=== PATIENT | male | born 1950 | race Caucasian/White ===

== ENCOUNTER 2019-10-13 11:09 | Inpatient (IN) ==
[2019-10-13] MEDS ORDERED: TUSSIONEX PENNKINETIC SUSP PO PRN (11:59)
[2019-10-13 12:33] LABS: BASOPHILS % (AUTO) 0.2 % (0.2-1.0); HEMATOCRIT 38.9 % (42.0-54.0); LYMPHOCYTES # (AUTO) 1.1 X10^3/uL (1.3-2.9); LYMPHOCYTES % (AUTO) 20.5 % (21.0-51.0); MEAN CORPUSCULAR HGB CONC 33.5 g/dL (33.0-35.0); MEAN CORPUSCULAR VOLUME 89.5 fL (80.0-100.0); MONOCYTES # (AUTO) 0.3 x10^3/uL (0.3-0.8); MONOCYTES % (AUTO) 5.7 % (0.0-13.0); NEUTROPHILS # (AUTO) 3.8 x10^3/uL (2.2-4.8); NEUTROPHILS % (AUTO) 73.6 % (42.0-75.0); PLATELET COUNT 154 X10^3/uL (150.0-450.0); RED BLOOD COUNT 4.34 X10^6/uL (4.7-6.0); RED CELL DISTRIBUTION WIDTH 12.8 % (11.6-16.5); WHITE BLOOD COUNT 5.2 X10^3/uL (3.6-10.0)
--- NOTE | 2019-10-13 12:40 | RAD ---
HISTORYACUTE BRONCHITIS, SOB, FEVERSTUDYPortable AP chestCOMPARISONNoneFINDINGSThere is a vague and patchy ground-glass like opacity in the right lower lobe peripherally. The heart size is prominent status post CABG. There is no edema or effusion. There are prominent osteophytes about the AC joints. There are old left posterior rib fractures.IMPRESSIONRight lower lobe peripheral pneumonitisElectronically signed by: DILIA HILL (Oct 13, 2019 12:35:59)
[2019-10-13 12:52] LABS: ALANINE AMINOTRANSFERASE 24 Units/L (12-78); ALKALINE PHOSPHATASE 35 Units/L (46-116); ASPARTATE AMINO TRANSFERASE 31 Units/L (15-37); BLOOD UREA NITROGEN 16 mg/dL (7-18); CALCIUM 8.6 mg/dL (8.5-10.1); CARBON DIOXIDE 25.3 mmol/L (21-32); CHLORIDE 95 mmol/L (98-107); COR CA(FOR HYPOALB) 9.4 mg/dL (8.5-10.1); COR NA(FOR HYPERGLY) 133 mmol/L (136-145); CREATININE 1.13 mg/dL (0.70-1.30); SODIUM 129 mmol/L (136-145); eGFR NON BLACK RACES > 60 (>60)
[2019-10-13] MEDS ORDERED: NS 1/2 1000 ML IV 1,000 ML IV ONE (13:58)
[2019-10-13] MEDS: NS 1/2 1000 ML IV 1,000 ML IV SCH (14:49)
[2019-10-13] MEDS: ROBITUSSIN DM PO SCH ×3 (14:49→20:58)
[2019-10-13 15:56] VITALS: BMI 27.6
[2019-10-13] MEDS: XOPENEX 1.25 MG/3 ML NEBULE NEB SCH (17:15)
[2019-10-13] MEDS: LOVENOX INJ 40 MG SYR SC SCH (20:57)
[2019-10-13] MEDS: VIBRAMYCIN 100 MG in NS 100 ML IV + SPIKE MINIBAG* 100 ML IV SCH (20:59)
[2019-10-13] MEDS: RESTORIL CAP 15 MG PO PRN (21:06)
--- NOTE | 2019-10-13 21:55 | DR.H&P ---
H&P - History & Physical for Day of: H&P Date: 10/13/19 - Chief Complaint Chief Complaint: Weakness, congestion - History of Present Illness History of Present Illness: The patient is a 69yo WM who presents to [facility] with complaints of continued congestion and weakness. Has been taking a ZPak for sinus congestion. States he is now coughing. State will get mildly short of breath with ambulation. Denies known Covid exposure. Denies wearing mask. State he primary is in the [employer] working. States that he has been running low grade fevers. Denies productive cough. Denies loss of taste. Denies GI symptoms. Does have history of CABG, DM, HTN. Patiet agrees with hospital admission. - Past Medical History Past Medical History: COPD, Coronary Artery Disease, Hypertension, Dyslipidemia, Diabetes, CHF - Past Surgical History Surgical History: CABG/Valve Surgery, Ortho Surgery - Family History Family Medical History: Diabetes Mellitus, Cancer, MA, Hypertension - Social History Does patient currently use any type of tobacco product: No Have you used tobacco products in the last 12 months: No Type of Tobacco Use: None Does any household member use tobacco: No Alcohol Use: None Drug Use: None Prescription drug monitoring program results: PDMP reviewed and no concerns identified - Medications Home Medications: No Known Drug Allergies Allergy (Verified 10/13/19 18:06) CONTINUE taking the following medications albuterol sulfate [ProAir HFA] 1 puff INHALATION QID PRN 10/13/19 [History] carvedilol 6.25 mg PO BID 10/13/19 [History] clopidogrel 75 mg PO DAILY 10/13/19 [History] empagliflozin-linagliptin [Glyxambi] 1 tab PO DAILY 10/13/19 [History] lisinopril 5 mg PO DAILY 10/13/19 [History] metformin 1,000 mg PO BID 10/13/19 [History] pantoprazole 40 mg PO BID 10/13/19 [History] - Review of Systems Constitutional: Fever, Weakness, Malaise Eyes: No Symptoms Reported ENT: Nose Congestion Respiratory: Cough, SOB with Excertion Cardiovascular: No Symptoms Reported Gastrointestinal: No Symptoms Reported Genitourinary: No Symptoms Reported Musculoskeletal: No Symptoms Reported Skin: No Symptoms Reported Neurological: No Symptoms Reported - Physical Exam Vital Signs: Temperature 100.7 F Pulse Rate [Apical] 98 Pulse Rate 101 Respiratory Rate 34 Blood Pressure [Right Arm] 153/76 Blood Pressure [Left Arm] 133/64 Blood Pressure 133/64 O2 Sat by Pulse Oximetry 95 Oriented: Normal Eyes: Normal Ear: Normal Nose: Normal Throat: Normal Respiratory: RLL Rhonchi, LLL Rhonchi Cardiovascular: Normal : Normal Auscultation: Bowel Sounds: Normal Palpation: Normal Tenderness: Normal Skin: Normal Musculoskeletal: Normal Psychiatric: Normal Mood Description: Calm Affect: Normal Speech Pattern: Clear - Assessment/Plan (1) COVID-19 Status: Acute Plan: droplet precautions, Plaquenel, Zinc, Vtamin C (2) Pneumonia Status: Acute Plan: IV antibiotics, CXR, ABG (3) Hyponatremia Status: Acute Plan: IVF with NS, Labs (4) CAD (coronary artery disease) Status: Chronic (5) Diabetes mellitus Qualifiers: Diabetes mellitus type: type 2 Status: Chronic Plan: Sliding scae coverage (6) Hypertension Qualifiers: Hypertension type: essential hypertension Status: Chronic Plan: Monitor BP. Home meds. - Review H&P Reviewed: Yes Patient was examined?: Yes - Allergies Allergies/Adverse Reactions: Allergies Allergy/AdvReac Type Severity Reaction Status Date / Time No Known Drug Allergies Allergy Verified 10/13/19 18:06
[2019-10-13] MEDS ORDERED: VENTOLIN or PROAIR HFA IN PRN (22:01)
[2019-10-13] MEDS: VITAMIN C PO SCH (22:22)
[2019-10-13] MEDS: ZINC SULFATE PO SCH (22:22)
[2019-10-13] MEDS: PLAQUENIL PO SCH (22:22)
[2019-10-13 22:23] LABS: BASOPHILS % (AUTO) 0.3 % (0.2-1.0); HEMATOCRIT 37.4 % (42.0-54.0); HEMOGLOBIN 12.4 g/dL (13.5-18.0); LYMPHOCYTES # (AUTO) 1.2 X10^3/uL (1.3-2.9); LYMPHOCYTES % (AUTO) 27.1 % (21.0-51.0); MEAN CORPUSCULAR HEMOGLOBIN 29.8 pg (27.0-34.0); MEAN CORPUSCULAR HGB CONC 33.3 g/dL (33.0-35.0); MEAN CORPUSCULAR VOLUME 89.4 fL (80.0-100.0); MEAN PLATELET VOLUME 7.8 fL (7.4-11.0); MONOCYTES # (AUTO) 0.2 x10^3/uL (0.3-0.8); MONOCYTES % (AUTO) 5.3 % (0.0-13.0); NEUTROPHILS % (AUTO) 67.3 % (42.0-75.0); PLATELET COUNT 145 X10^3/uL (150.0-450.0); RED BLOOD COUNT 4.18 X10^6/uL (4.7-6.0); RED CELL DISTRIBUTION WIDTH 12.8 % (11.6-16.5); WHITE BLOOD COUNT 4.5 X10^3/uL (3.6-10.0)
[2019-10-13 22:28] LABS: ABG BASE EXCESS 3.3 mmol/L (-2.0-2.0); ABG HCO3 27.8 mmol/L (22-26)
[2019-10-13 22:31] LABS: ABG ALLEN TEST POSS
[2019-10-13 22:32] LABS: ALANINE AMINOTRANSFERASE 23 Units/L (12-78); ALBUMIN 2.6 g/dL (3.4-5.0); ALKALINE PHOSPHATASE 34 Units/L (46-116); ASPARTATE AMINO TRANSFERASE 28 Units/L (15-37); BLOOD UREA NITROGEN 14 mg/dL (7-18); CALCIUM 8.8 mg/dL (8.5-10.1); CARBON DIOXIDE 26.1 mmol/L (21-32); CHLORIDE 98 mmol/L (98-107); COR CA(FOR HYPOALB) 9.9 mg/dL (8.5-10.1); COR NA(FOR HYPERGLY) 136 mmol/L (136-145); CREATININE 1.04 mg/dL (0.70-1.30); SODIUM 133 mmol/L (136-145); TOTAL PROTEIN 7.1 g/dL (6.4-8.2); eGFR NON BLACK RACES > 60 (>60)
[2019-10-14] MEDS: XOPENEX 1.25 MG/3 ML NEBULE NEB SCH ×5 (00:30→17:50)
[2019-10-14 04:37] LABS: BASOPHILS % (AUTO) 0.1 % (0.2-1.0); HEMATOCRIT 36.6 % (42.0-54.0); HEMOGLOBIN 12.2 g/dL (13.5-18.0); LYMPHOCYTES # (AUTO) 1.2 X10^3/uL (1.3-2.9); LYMPHOCYTES % (AUTO) 22.8 % (21.0-51.0); MEAN CORPUSCULAR HGB CONC 33.2 g/dL (33.0-35.0); MEAN CORPUSCULAR VOLUME 90.2 fL (80.0-100.0); MONOCYTES # (AUTO) 0.3 x10^3/uL (0.3-0.8); MONOCYTES % (AUTO) 5.9 % (0.0-13.0); NEUTROPHILS # (AUTO) 3.6 x10^3/uL (2.2-4.8); NEUTROPHILS % (AUTO) 71.2 % (42.0-75.0); PLATELET COUNT 151 X10^3/uL (150.0-450.0); RED BLOOD COUNT 4.06 X10^6/uL (4.7-6.0); WHITE BLOOD COUNT 5.1 X10^3/uL (3.6-10.0)
[2019-10-14 04:49] LABS: ALANINE AMINOTRANSFERASE 22 Units/L (12-78); ALBUMIN 2.6 g/dL (3.4-5.0); ALKALINE PHOSPHATASE 32 Units/L (46-116); ASPARTATE AMINO TRANSFERASE 28 Units/L (15-37); BLOOD UREA NITROGEN 13 mg/dL (7-18); CALCIUM 8.8 mg/dL (8.5-10.1); CARBON DIOXIDE 26.1 mmol/L (21-32); CHLORIDE 98 mmol/L (98-107); COR CA(FOR HYPOALB) 9.9 mg/dL (8.5-10.1); COR NA(FOR HYPERGLY) 135 mmol/L (136-145); CREATININE 0.83 mg/dL (0.70-1.30); SODIUM 134 mmol/L (136-145); TOTAL PROTEIN 7.2 g/dL (6.4-8.2); eGFR NON BLACK RACES > 60 (>60)
[2019-10-14] MEDS: NS 1/2 1000 ML IV 1,000 ML IV SCH ×2 (05:45→16:06)
--- NOTE | 2019-10-14 06:19 | RAD ---
HISTORYFollow-up pneumoniaSTUDYChest AP [id number] is rotated to the left. The patient is status post median sternotomy. The heart is enlarged. No congestive heart failure is noted. Peripheral infiltrate is pr esent in the right lower lobe unchanged in appearance from the prior examination. The remainder of th e lung mancini appear clear. No pleural effusions are identified. Bony thorax is unremarkable.IMPRESSI ONNo significant change peripheral right lower lobe infiltrateElectronically signed by: DONN MCELROY (Oct 14, 2019 06:17:47)
[2019-10-14] MEDS ORDERED: GLUCOPHAGE ONE ×2 (08:24→20:18)
[2019-10-14] MEDS: ZINC SULFATE PO SCH ×2 (08:31→21:07)
[2019-10-14] MEDS: ZESTRIL TAB 5 MG PO SCH (08:31)
[2019-10-14] MEDS: PROTONIX TAB 40 MG PO SCH ×2 (08:32→21:04)
[2019-10-14] MEDS: COREG TAB 6.25 MG PO SCH ×2 (08:32→20:59)
[2019-10-14] MEDS: VITAMIN C PO SCH (08:32)
[2019-10-14] MEDS: PLAVIX PO SCH (08:32)
[2019-10-14] MEDS: GLUCOPHAGE PO SCH ×2 (08:33→20:59)
[2019-10-14] MEDS: PLAQUENIL PO SCH ×2 (08:33→21:06)
[2019-10-14] MEDS: ROBITUSSIN DM PO SCH ×4 (08:33→21:07)
[2019-10-14] MEDS ORDERED: ROCEPHIN VIAL 1 GRAM 1 G in NS 100 ML IV + SPIKE MINIBAG* 100 ML IV SCH (09:00)
[2019-10-14] MEDS: VIBRAMYCIN 100 MG in NS 100 ML IV + SPIKE MINIBAG* 100 ML IV SCH (09:39)
[2019-10-14] MEDS ORDERED: REMDESIVIR (INVESTIGATIONAL DRUG GS-5734) 200 MG in NS 250 ML IV 250 ML IV ONE (09:55)
[2019-10-14 09:56] LABS: ABG ALLEN TEST POS; ABG BASE EXCESS 1.8 mmol/L (-2.0-2.0); ABG HCO3 25.7 mmol/L (22-26)
[2019-10-14] MEDS ORDERED: VENTOLIN or PROAIR HFA IN SCH (10:00)
[2019-10-14] MEDS ORDERED: REMDESIVIR (INVESTIGATIONAL DRUG GS-5734) 100 MG in NS 250 ML IV 250 ML IV SCH (10:00)
[2019-10-14] MEDS ORDERED: NS 250 ML IV 250 ML IV ONE (10:21)
[2019-10-14] MEDS ORDERED: NS 250 ML IV 250 ML IV PRN (10:25)
[2019-10-14] MEDS: BENADRYL CAP/TAB 25 MG PO SCH ×2 (10:29→17:25)
[2019-10-14] MEDS: PEPCID TAB 20 MG PO SCH ×2 (10:31→21:04)
[2019-10-14] MEDS: SOLU-Medrol 125 MG VIAL IVP SCH ×3 (10:32→21:06)
[2019-10-14] MEDS: ZOSYN VIAL 3.375 GRAMS 3.375 G in NS 100 ML IV + SPIKE MINIBAG* 100 ML IV SCH ×3 (10:44→21:06)
[2019-10-14] MEDS: HumuLIN R SUBCUT PRN ×2 (11:08→16:14)
[2019-10-14] MEDS: ZITHROMAX INJ 500 MG VIAL 500 MG in NS 250 ML IV 250 ML IV SCH (12:07)
[2019-10-14] MEDS ORDERED: LOVENOX INJ 40 MG SYR SC SCH (13:00)
--- NOTE | 2019-10-14 13:03 | PCM.PROG ---
Progress Note - Progress Note for Day of Date of Exam: 10/14/19 - Subjective Subjective: The patient is a 69yo WM admitted with Covid + Pneumonia and hypoxia. Has history of COPD, CABG, DM, HTN, Dyslipidiemia. Lying in bed with O2 at 2L/M on. Patient continues to feel weak. Denies increased SOB or dyspnea. Denies CP. Denies any other complaints at present. POC discussed with patient. ( updated) - Past Medical Family Social History Past Med/Fam/Surg Hx: No changes since H&P Allergies: Allergies No Known Drug Allergies Allergy (Verified 10/13/19 18:06) - Review of Systems ROS: No change since H&P - Vital Signs and I&O's Vital Signs: Temperature 100.3 F Pulse Rate [Apical] 88 Pulse Rate 99 Respiratory Rate 33 Blood Pressure [Right Arm] 112/55 Blood Pressure [Left Arm] 133/64 Blood Pressure 133/64 O2 Sat by Pulse Oximetry 93 Intake and Output: Intake & Output 10/11/19 10/12/19 10/13/19 10/14/19 23:59 23:59 23:59 23:59 Intake Total 860 / 860 300 / 300 Output Total 700 / 700 Balance 860 / 860 -400 / -400 - Physical Exam Oriented: Normal Eyes: Normal Ear: Normal Nose: Normal Throat: Normal Respiratory: Right, Left, Diminished, Rhonchi (BLL) Cardiovascular: Normal : Normal Auscultation: Bowel Sounds: Normal Tenderness: Normal Skin: Normal Musculoskeletal: Normal Psychiatric: Normal Mood Description: Calm Affect: Normal Speech Pattern: Clear, Appropriate - Laboratory and Diagnostics Result Diagrams: 10/14/19 04:15 10/14/19 04:15 Labs: Laboratory WBC 5.1 X10^3/uL (3.6-10.0) 10/14/19 04:15 RBC 4.06 X10^6/uL (4.7-6.0) L 10/14/19 04:15 Hgb 12.2 g/dL (13.5-18.0) L 10/14/19 04:15 Hct 36.6 % (42.0-54.0) L 10/14/19 04:15 MCV 90.2 fL (80.0-100.0) 10/14/19 04:15 MCH 30.0 pg (27.0-34.0) 10/14/19 04:15 MCHC 33.2 g/dL (33.0-35.0) 10/14/19 04:15 RDW 13.0 % (11.6-16.5) 10/14/19 04:15 Plt Count 151 X10^3/uL (150.0-450.0) 10/14/19 04:15 MPV 8.0 fL (7.4-11.0) 10/14/19 04:15 Neut % (Auto) 71.2 % (42.0-75.0) 10/14/19 04:15 Lymph % (Auto) 22.8 % (21.0-51.0) 10/14/19 04:15 [place] % (Auto) 5.9 % (0.0-13.0) 10/14/19 04:15 Eos % (Auto) 0.0 % (0.9-2.9) L 10/14/19 04:15 Baso % (Auto) 0.1 % (0.2-1.0) L 10/14/19 04:15 Neut # (Auto) 3.6 x10^3/uL (2.2-4.8) 10/14/19 04:15 Lymph # (Auto) 1.2 X10^3/uL (1.3-2.9) L 10/14/19 04:15 [place] # (Auto) 0.3 x10^3/uL (0.3-0.8) 10/14/19 04:15 Eos # (Auto) 0.0 x10^3/uL (0.0-0.2) 10/14/19 04:15 Baso # (Auto) 0.0 X10^3/uL (0.0-0.1) 10/14/19 04:15 Absolute Nucleated RBC 0.0 /100WBC 10/14/19 04:15 D-Dimer 615 ng/mL (0-400) H* 10/13/19 22:09 Sample Site Lr 10/14/19 09:45 ABG pH 7.450 (7.35-7.45) 10/14/19 09:45 ABG pCO2 37.0 mmHg (35.0-45.0) 10/14/19 09:45 ABG pO2 60.0 mmHg (80.0-100.0) L 10/14/19 09:45 ABG HCO3 25.7 mmol/L (22-26) 10/14/19 09:45 ABG O2 Saturation 92.0 % (90-100) 10/14/19 09:45 ABG Base Excess 1.8 mmol/L (-2.0-2.0) 10/14/19 09:45 Obed Test Pos 10/14/19 09:45 A-a Gradient 93.0 mmHg 10/14/19 09:45 FiO2 28.0 10/14/19 09:45 Blood Gas Comments Pt [facility] 10/14/19 09:45 Sodium 134 mmol/L (136-145) L 10/14/19 04:15 Corrected Sodium 135 mmol/L (136-145) L 10/14/19 04:15 Potassium 4.0 mmol/L (3.5-5.1) 10/14/19 04:15 Chloride 98 mmol/L (98-107) 10/14/19 04:15 Carbon Dioxide 26.1 mmol/L (21-32) 10/14/19 04:15 BUN 13 mg/dL (7-18) 10/14/19 04:15 Creatinine 0.83 mg/dL (0.70-1.30) 10/14/19 04:15 Est GFR (MDRD) Af Amer > 60 (>60) 10/14/19 04:15 Est GFR (MDRD) Non-Af > 60 (>60) 10/14/19 04:15 Glucose 157 mg/dL (65-99) H 10/14/19 04:15 Calcium 8.8 mg/dL (8.5-10.1) 10/14/19 04:15 Corrected Calcium 9.9 mg/dL (8.5-10.1) 10/14/19 04:15 Total Bilirubin 0.60 mg/dL (0.2-1.0) 10/14/19 04:15 AST 28 Units/L (15-37) 10/14/19 04:15 ALT 22 Units/L (12-78) 10/14/19 04:15 Alkaline Phosphatase 32 Units/L (46-116) L 10/14/19 04:15 Total Protein 7.2 g/dL (6.4-8.2) 10/14/19 04:15 Albumin 2.6 g/dL (3.4-5.0) L 10/14/19 04:15 Globulin 4.6 g/dL (2.5-4.5) H 10/14/19 04:15 Albumin/Globulin Ratio 0.6 Ratio (1.1-2.1) L 10/14/19 04:15 SARS-CoV-2 (PCR) Positive (NEGATIVE) A 10/13/19 12:03 - Plan (1) COVID-19 Status: Acute Plan: droplet precautions, Plaquenel, Zinc, Vtamin C (2) Pneumonia Status: Acute Plan: IV antibiotics, CXR, ABG (3) Hyponatremia Status: Acute Plan: IVF with NS, Labs (4) CAD (coronary artery disease) Status: Chronic (5) Diabetes mellitus Status: Chronic Qualifiers: Diabetes mellitus type: type 2 Plan: Sliding scae coverage (6) Hypertension Status: Chronic Qualifiers: Hypertension type: essential hypertension Plan: Monitor BP. Home meds. (7) COPD (chronic obstructive pulmonary disease) Status: Acute (8) Hypoxia Status: Acute Plan: Oxygen, ABGs
[2019-10-14] MEDS: LASIX PO SCH (16:15)
--- NOTE | 2019-10-14 18:04 | CT ---
HISTORYHYPOXIA, COVID-19 POSITIVESTUDYCTA CHESTCOMPARISONOctober 2017TECHNIQUEMultiple axial images of the chest were obtained from the thoracic inlet to the upper abdomen after the administration of IV contrast. 3D reconstructions utilizing axial MIPS imaging was performed and reviewed. Dose reduction techniques including Automated Exposure Control (AEC) and adjustment of mA and kV were utilized.FINDINGSThe thyroid is unremarkable. The mediastinum does not demonstrate significant pathological lymphadenopathy. There is no paracardial effusion observed. The thoracic aorta is normal in its contour without evidence for aneurysmal dilatation. The central pulmonary arterial system does not demonstrate central filling defects to suggest pulmonary emboli. Coronary and aortic atherosclerosis are noted.Evaluation of the lung parenchyma demonstrates a background of centrilobular and paraseptal emphysema. There are diffuse bilateral peripheral and basilar predominant ground-glass opacities with interlobular and interlobular septal thickening most consistent with atypical bronchopneumonia, likely viral in origin given the clinical history.No destructive osseous lesions are seen. Scans through the upper abdomen demonstrate a hyperdense right renal cyst and nonobstructive left nephrolithiasis.IMPRESSIONFindings compatible with atypical bronchopneumonia.Electronically signed by: IRMA CHACON (Oct 14, 2019 18:02:37)
[2019-10-14] MEDS: LOVENOX INJ 40 MG SYR SC SCH (21:03)
[2019-10-14] MEDS: SNACK - Diabetic Appropriate PO SCH (21:08)
[2019-10-15] MEDS: XOPENEX 1.25 MG/3 ML NEBULE NEB SCH ×4 (00:20→17:15)
[2019-10-15] MEDS: BENADRYL CAP/TAB 25 MG PO SCH ×3 (03:15→18:21)
[2019-10-15] MEDS: SOLU-Medrol 125 MG VIAL IVP SCH ×4 (03:49→21:01)
[2019-10-15 05:01] LABS: BASOPHILS % (AUTO) 0.5 % (0.2-1.0); EOSINOPHILS % (AUTO) 0.2 % (0.9-2.9); HEMATOCRIT 31.6 % (42.0-54.0); HEMOGLOBIN 10.4 g/dL (13.5-18.0); LYMPHOCYTES # (AUTO) 0.6 X10^3/uL (1.3-2.9); LYMPHOCYTES % (AUTO) 18.6 % (21.0-51.0); MEAN CORPUSCULAR HGB CONC 32.9 g/dL (33.0-35.0); MEAN CORPUSCULAR VOLUME 91.2 fL (80.0-100.0); MEAN PLATELET VOLUME 8.7 fL (7.4-11.0); MONOCYTES # (AUTO) 0.1 x10^3/uL (0.3-0.8); MONOCYTES % (AUTO) 4.1 % (0.0-13.0); NEUTROPHILS # (AUTO) 2.6 x10^3/uL (2.2-4.8); NEUTROPHILS % (AUTO) 76.6 % (42.0-75.0); PLATELET COUNT 144 X10^3/uL (150.0-450.0); RED BLOOD COUNT 3.47 X10^6/uL (4.7-6.0)
[2019-10-15 05:20] LABS: ALANINE AMINOTRANSFERASE 30 Units/L (12-78); ALBUMIN 2.3 g/dL (3.4-5.0); ALKALINE PHOSPHATASE 32 Units/L (46-116); ASPARTATE AMINO TRANSFERASE 32 Units/L (15-37); BLOOD UREA NITROGEN 24 mg/dL (7-18); CARBON DIOXIDE 25.7 mmol/L (21-32); CHLORIDE 101 mmol/L (98-107); COR CA(FOR HYPOALB) 10.4 mg/dL (8.5-10.1); COR NA(FOR HYPERGLY) 141 mmol/L (136-145); CREATININE 1.09 mg/dL (0.70-1.30); SODIUM 135 mmol/L (136-145); TOTAL PROTEIN 6.9 g/dL (6.4-8.2); eGFR NON BLACK RACES > 60 (>60)
[2019-10-15 05:25] LABS: GIANT PLATELET FEW; PLATELET MORPHOLOGY COMMENT ABNORMAL (NORMAL)
[2019-10-15] MEDS: ZOSYN VIAL 3.375 GRAMS 3.375 G in NS 100 ML IV + SPIKE MINIBAG* 100 ML IV SCH ×3 (05:49→21:02)
[2019-10-15 05:58] LABS: WHITE BLOOD COUNT 3.6 X10^3/uL (3.6-10.0)
[2019-10-15] MEDS: NS 1/2 1000 ML IV 1,000 ML IV SCH (06:51)
[2019-10-15] MEDS ORDERED: GLUCOPHAGE ONE ×2 (07:54→20:41)
[2019-10-15 08:40] LABS: TROPONIN I < 0.02 ng/mL (0-1.5)
[2019-10-15] MEDS: PULMICORT NEB TX 0.5 MG NEB SCH ×2 (08:50→21:41)
[2019-10-15] MEDS: COREG TAB 6.25 MG PO SCH ×2 (08:54→21:03)
[2019-10-15] MEDS: GLUCOPHAGE PO SCH ×2 (08:54→21:02)
[2019-10-15] MEDS: PLAQUENIL PO SCH ×2 (08:55→21:02)
[2019-10-15] MEDS: LASIX PO SCH ×2 (08:55→16:39)
[2019-10-15] MEDS: PLAVIX PO SCH (08:56)
[2019-10-15] MEDS: PEPCID TAB 20 MG PO SCH ×2 (08:56→21:02)
[2019-10-15] MEDS: PROTONIX TAB 40 MG PO SCH ×2 (08:57→21:03)
[2019-10-15] MEDS: ROBITUSSIN DM PO SCH ×4 (08:57→21:01)
[2019-10-15] MEDS: VITAMIN C PO SCH (08:57)
[2019-10-15] MEDS: ZINC SULFATE PO SCH ×2 (08:58→21:02)
[2019-10-15] MEDS: ZESTRIL TAB 5 MG PO SCH (08:58)
[2019-10-15] MEDS: ZITHROMAX INJ 500 MG VIAL 500 MG in NS 250 ML IV 250 ML IV SCH (08:59)
[2019-10-15] MEDS: REMDESIVIR (INVESTIGATIONAL DRUG GS-5734) 100 MG in NS 250 ML IV 250 ML IV SCH (09:05)
[2019-10-15] MEDS: ALDACTONE TAB 25 MG PO SCH (09:05)
--- NOTE | 2019-10-15 13:07 | PCM.PROG ---
Progress Note - Progress Note for Day of Date of Exam: 10/15/19 - Subjective Subjective: The patient is a 69yo WM admitted with Covid + Pneumonia and hypoxia. Has history of COPD, CABG, DM, HTN, Dyslipidiemia. Lying in bed with O2 at 4L/M on. Patient continues to feel weak. Denies increased SOB or dyspnea. Denies CP. Denies any other complaints at present. POC discussed with patient. No new complaints. - Past Medical Family Social History Past Med/Fam/Surg Hx: No changes since H&P Allergies: Allergies No Known Drug Allergies Allergy (Verified 10/13/19 18:06) - Review of Systems ROS: No change since H&P - Vital Signs and I&O's Vital Signs: Temperature 96.1 F Pulse Rate [Apical] 66 Pulse Rate 74 Respiratory Rate 18 Blood Pressure [Right Arm] 106/57 Blood Pressure [Left Arm] 133/64 Blood Pressure 123/58 O2 Sat by Pulse Oximetry 97 Intake and Output: Intake & Output 10/12/19 10/13/19 10/14/19 10/15/19 23:59 23:59 23:59 23:59 Intake Total 860 / 860 2480 / 2480 500 / 500 Output Total 1350 / 1350 700 / 700 Balance 860 / 860 1130 / 1130 -200 / -200 - Physical Exam Oriented: Normal Eyes: Normal Ear: Normal Nose: Normal Throat: Normal Respiratory: Right, Left, Diminished, OTHER (coarse) Cardiovascular: Normal : Normal Auscultation: Bowel Sounds: Normal Tenderness: Normal Skin: Normal Musculoskeletal: Normal Psychiatric: Normal Mood Description: Calm Affect: Normal Speech Pattern: Clear, Appropriate - Laboratory and Diagnostics Result Diagrams: 10/15/19 04:25 10/15/19 11:37 Labs: 10/13/19 12:20 Blood Blood Culture - Preliminary 10/13/19 12:10 Blood Blood Culture - Preliminary Laboratory WBC 3.6 X10^3/uL (3.6-10.0) 10/15/19 04:25 RBC 3.47 X10^6/uL (4.7-6.0) L 10/15/19 04:25 Hgb 10.4 g/dL (13.5-18.0) L 10/15/19 04:25 Hct 31.6 % (42.0-54.0) L 10/15/19 04:25 MCV 91.2 fL (80.0-100.0) 10/15/19 04:25 MCH 30.0 pg (27.0-34.0) 10/15/19 04:25 MCHC 32.9 g/dL (33.0-35.0) L 10/15/19 04:25 RDW 13.0 % (11.6-16.5) 10/15/19 04:25 Plt Count 144 X10^3/uL (150.0-450.0) L 10/15/19 04:25 Plt Count Comment Decreased (ADEQUATE) 10/15/19 04:25 MPV 8.7 fL (7.4-11.0) 10/15/19 04:25 Neut % (Auto) 76.6 % (42.0-75.0) H 10/15/19 04:25 Lymph % (Auto) 18.6 % (21.0-51.0) L 10/15/19 04:25 [place] % (Auto) 4.1 % (0.0-13.0) 10/15/19 04:25 Eos % (Auto) 0.2 % (0.9-2.9) L 10/15/19 04:25 Baso % (Auto) 0.5 % (0.2-1.0) 10/15/19 04:25 Neut # (Auto) 2.6 x10^3/uL (2.2-4.8) 10/15/19 04:25 Lymph # (Auto) 0.6 X10^3/uL (1.3-2.9) L 10/15/19 04:25 [place] # (Auto) 0.1 x10^3/uL (0.3-0.8) L 10/15/19 04:25 Eos # (Auto) 0.0 x10^3/uL (0.0-0.2) 10/15/19 04:25 Baso # (Auto) 0.0 X10^3/uL (0.0-0.1) 10/15/19 04:25 Absolute Nucleated RBC 0.0 /100WBC 10/15/19 04:25 Giant Platelets Few 10/15/19 04:25 Plt Morphology Comment Abnormal (NORMAL) 10/15/19 04:25 RBC Morphology Normal (NORMAL) 10/15/19 04:25 D-Dimer 615 ng/mL (0-400) H* 10/13/19 22:09 Sample Site Lr 10/14/19 09:45 ABG pH 7.450 (7.35-7.45) 10/14/19 09:45 ABG pCO2 37.0 mmHg (35.0-45.0) 10/14/19 09:45 ABG pO2 60.0 mmHg (80.0-100.0) L 10/14/19 09:45 ABG HCO3 25.7 mmol/L (22-26) 10/14/19 09:45 ABG O2 Saturation 92.0 % (90-100) 10/14/19 09:45 ABG Base Excess 1.8 mmol/L (-2.0-2.0) 10/14/19 09:45 Obed Test Pos 10/14/19 09:45 A-a Gradient 93.0 mmHg 10/14/19 09:45 FiO2 28.0 10/14/19 09:45 Blood Gas Comments Pt [facility] 10/14/19 09:45 Sodium 135 mmol/L (136-145) L 10/15/19 04:25 Corrected Sodium 141 mmol/L (136-145) 10/15/19 04:25 Potassium 4.4 mmol/L (3.5-5.1) 10/15/19 04:25 Chloride 101 mmol/L (98-107) 10/15/19 04:25 Carbon Dioxide 25.7 mmol/L (21-32) 10/15/19 04:25 BUN 24 mg/dL (7-18) H 10/15/19 04:25 Creatinine 1.09 mg/dL (0.70-1.30) 10/15/19 04:25 Est GFR (MDRD) Af Amer > 60 (>60) 10/15/19 04:25 Est GFR (MDRD) Non-Af > 60 (>60) 10/15/19 04:25 Glucose 489 mg/dL (65-99) H 10/15/19 11:37 Calcium 9.0 mg/dL (8.5-10.1) 10/15/19 04:25 Corrected Calcium 10.4 mg/dL (8.5-10.1) H 10/15/19 04:25 Ferritin 1561 ng/mL (26-388) H 10/15/19 04:25 Total Bilirubin 0.40 mg/dL (0.2-1.0) 10/15/19 04:25 AST 32 Units/L (15-37) 10/15/19 04:25 ALT 30 Units/L (12-78) 10/15/19 04:25 Alkaline Phosphatase 32 Units/L (46-116) L 10/15/19 04:25 Troponin I < 0.02 ng/mL (0-1.5) 10/15/19 04:25 C-Reactive Protein 135.00 mg/L (0-3.0) H 10/15/19 04:25 B-Natriuretic Peptide 301 pg/mL (0-79) H 10/15/19 04:25 Total Protein 6.9 g/dL (6.4-8.2) 10/15/19 04:25 Albumin 2.3 g/dL (3.4-5.0) L 10/15/19 04:25 Globulin 4.6 g/dL (2.5-4.5) H 10/15/19 04:25 Albumin/Globulin Ratio 0.5 Ratio (1.1-2.1) L 10/15/19 04:25 SARS-CoV-2 (PCR) Positive (NEGATIVE) A 10/13/19 12:03 Blood Type A POSITIVE 10/14/19 18:48 Antibody Screen Negative 10/14/19 18:48 - Plan (1) COVID-19 Status: Acute Plan: Droplet Precautions. 10/13/19 Plaquenel, Zinc, Vtamin C started. 10/14/19 Antibiotics changed to Zithromax 500mg IV, Zosyn 3.375 IV, Resdesiver added. Nebs. Convalescent plasma ordered. 10/15/19 Xopenex/Pulmicort Nebs started (2) Pneumonia Status: Acute Plan: IV antibiotics, CXR, ABG (3) Hyponatremia Status: Acute Plan: IVF with NS, Labs (4) CAD (coronary artery disease) Status: Chronic (5) Diabetes mellitus Status: Chronic Qualifiers: Diabetes mellitus type: type 2 Plan: Sliding scae coverage (6) Hypertension Status: Chronic Qualifiers: Hypertension type: essential hypertension Plan: Monitor BP. Home meds. (7) COPD (chronic obstructive pulmonary disease) Status: Acute (8) Hypoxia Status: Acute Plan: Oxygen, ABGs
[2019-10-15 13:13] LABS: ABG BASE EXCESS -1.3 mmol/L (-2.0-2.0); ABG HCO3 23.7 mmol/L (22-26)
[2019-10-15] MEDS: HumuLIN R SUBCUT PRN ×2 (18:36→21:22)
[2019-10-15] MEDS: LOVENOX INJ 40 MG SYR SC SCH (21:03)
[2019-10-15] MEDS: SNACK - Diabetic Appropriate PO SCH (21:22)
[2019-10-16] MEDS ORDERED: NS 1/2 1000 ML IV 1,000 ML IV ONE (01:15)
[2019-10-16] MEDS: XOPENEX 1.25 MG/3 ML NEBULE NEB SCH ×4 (01:16→17:30)
[2019-10-16] MEDS: BENADRYL CAP/TAB 25 MG PO SCH ×3 (02:08→18:15)
[2019-10-16] MEDS: NS 1/2 1000 ML IV 1,000 ML IV SCH (02:08)
[2019-10-16] MEDS: SOLU-Medrol 125 MG VIAL IVP SCH ×4 (03:07→21:14)
[2019-10-16 05:16] LABS: BASOPHILS % (AUTO) 0.3 % (0.2-1.0); EOSINOPHILS % (AUTO) 0.1 % (0.9-2.9); HEMATOCRIT 33.7 % (42.0-54.0); HEMOGLOBIN 11.4 g/dL (13.5-18.0); LYMPHOCYTES # (AUTO) 0.6 X10^3/uL (1.3-2.9); LYMPHOCYTES % (AUTO) 9.6 % (21.0-51.0); MEAN CORPUSCULAR HEMOGLOBIN 30.5 pg (27.0-34.0); MEAN CORPUSCULAR HGB CONC 33.9 g/dL (33.0-35.0); MEAN PLATELET VOLUME 8.8 fL (7.4-11.0); MONOCYTES # (AUTO) 0.4 x10^3/uL (0.3-0.8); NEUTROPHILS # (AUTO) 5.3 x10^3/uL (2.2-4.8); PLATELET COUNT 156 X10^3/uL (150.0-450.0); RED BLOOD COUNT 3.75 X10^6/uL (4.7-6.0); WHITE BLOOD COUNT 6.3 X10^3/uL (3.6-10.0)
[2019-10-16 05:32] LABS: ALANINE AMINOTRANSFERASE 32 Units/L (12-78); ALBUMIN 2.3 g/dL (3.4-5.0); ALKALINE PHOSPHATASE 32 Units/L (46-116); ASPARTATE AMINO TRANSFERASE 28 Units/L (15-37); BLOOD UREA NITROGEN 29 mg/dL (7-18); CALCIUM 8.7 mg/dL (8.5-10.1); CARBON DIOXIDE 27.8 mmol/L (21-32); CHLORIDE 101 mmol/L (98-107); COR CA(FOR HYPOALB) 10.1 mg/dL (8.5-10.1); COR NA(FOR HYPERGLY) 140 mmol/L (136-145); CREATININE 1.11 mg/dL (0.70-1.30); SODIUM 136 mmol/L (136-145); TOTAL PROTEIN 6.5 g/dL (6.4-8.2); eGFR NON BLACK RACES > 60 (>60)
[2019-10-16] MEDS: ZOSYN VIAL 3.375 GRAMS 3.375 G in NS 100 ML IV + SPIKE MINIBAG* 100 ML IV SCH ×3 (05:36→21:14)
[2019-10-16] MEDS: HumuLIN R SUBCUT PRN ×3 (05:42→21:57)
--- NOTE | 2019-10-16 06:12 | RAD ---
HISTORYFollow-up pneumoniaSTUDYChest AP [id number] film and CTA chestFINDINGSPatient is status post median sternotomy and CABG. The heart is enlarged. No congestive heart failure is noted. Peripheral infiltrates are present in the right upper and right lower lobes unchanged from the prior examination. The remainder of the lung mancini appear clear. It should be noted that the remainder of the bilateral infiltrates demonstrated on the recent CTA are not yet visible on plain film. No pleural effusions are identified. Bony thorax is unremarkable.IMPRESSIONNo change peripheral right upper and right lower lobe ground-glass infiltrates. The remainder of the bilateral infiltrates demonstrated on CTA chest 10/14/2019 are not visible on plain film.Cardiomegaly without congestive heart failureElectronically signed by: DONN MCELROY (Oct 16, 2019 06:11:33)
[2019-10-16] MEDS ORDERED: POTASSIUM CHL 40 MEQ/NS 0.45% 500 ML IV PRN (06:16)
[2019-10-16] MEDS ORDERED: KLOR-CON PO PRN (06:16)
[2019-10-16] MEDS ORDERED: MAGNESIUM SULFATE 1 GRAM/100 mL PREMIX 1 GM/100 ML BAG IV PRN (06:16)
[2019-10-16] MEDS ORDERED: K-RIDER 10 MEQ/NS 100 ML 10 MEQ/100 ML BAG IV PRN (06:16)
[2019-10-16] MEDS ORDERED: POTASSIUM CHLORIDE LIQ 20 MEQ UDC PO PRN (06:16)
[2019-10-16] MEDS ORDERED: POTASSIUM CHL 60 MEQ/NS 0.45% 500 ML IV PRN (06:16)
[2019-10-16] MEDS ORDERED: MICRO K EXTEN CAP 10 MEQ PO PRN (06:16)
[2019-10-16] MEDS: PULMICORT NEB TX 0.5 MG NEB SCH ×2 (09:08→21:30)
[2019-10-16 09:09] LABS: ABG BASE EXCESS 3.9 mmol/L (-2.0-2.0); ABG HCO3 28.5 mmol/L (22-26)
[2019-10-16] MEDS ORDERED: GLUCOPHAGE ONE ×2 (09:10→20:25)
[2019-10-16] MEDS: VITAMIN C PO SCH (09:21)
[2019-10-16] MEDS: ZINC SULFATE PO SCH ×2 (09:21→21:15)
[2019-10-16] MEDS: MAG-OX TAB PO SCH ×2 (09:22→21:16)
[2019-10-16] MEDS: PLAQUENIL PO SCH ×2 (09:22→21:16)
[2019-10-16] MEDS: ZESTRIL TAB 5 MG PO SCH (09:22)
[2019-10-16] MEDS: COREG TAB 6.25 MG PO SCH ×2 (09:22→21:18)
[2019-10-16] MEDS: ALDACTONE TAB 25 MG PO SCH (09:22)
[2019-10-16] MEDS: PROTONIX TAB 40 MG PO SCH ×2 (09:23→21:16)
[2019-10-16] MEDS: GLUCOPHAGE PO SCH ×2 (09:23→21:17)
[2019-10-16] MEDS: K-DUR TAB 20 MEQ PO PRN (09:23)
[2019-10-16] MEDS: PEPCID TAB 20 MG PO SCH ×2 (09:23→21:16)
[2019-10-16] MEDS: PLAVIX PO SCH (09:24)
[2019-10-16] MEDS: REMDESIVIR (INVESTIGATIONAL DRUG GS-5734) 100 MG in NS 250 ML IV 250 ML IV SCH (09:24)
[2019-10-16] MEDS: ROBITUSSIN DM PO SCH ×4 (09:26→21:15)
[2019-10-16] MEDS ORDERED: LASIX ONE (09:27)
[2019-10-16] MEDS: LASIX PO SCH ×2 (09:27→18:15)
--- NOTE | 2019-10-16 10:33 | PCM.PROG ---
Progress Note - Progress Note for Day of Date of Exam: 10/16/19 - Subjective Subjective: The patient is a 69yo WM admitted with Covid + Pneumonia and hypoxia. Has history of COPD, CABG, DM, HTN, Dyslipidiemia. Lying in bed with O2 at 4L/M on. Patient continues to feel weak but states he is feeling some better. Denies increased SOB or dyspnea. Is using neb treatment at present. Denies CP or increasing edema. Did receive convalescent plasma on 10/15/19. Blood sugars are better controlled with starting insulin. Denies any other complaints at present. POC discussed with patient. No new complaints. - Past Medical Family Social History Past Med/Fam/Surg Hx: No changes since H&P Allergies: Allergies No Known Drug Allergies Allergy (Verified 10/13/19 18:06) - Review of Systems ROS: No change since H&P - Vital Signs and I&O's Vital Signs: Temperature 98.1 F Pulse Rate [Apical] 66 Pulse Rate 56 Respiratory Rate 19 Blood Pressure [Right Arm] 106/57 Blood Pressure [Left Arm] 133/64 Blood Pressure 135/61 O2 Sat by Pulse Oximetry 96 Intake and Output: Intake & Output 10/13/19 10/14/19 10/15/19 10/16/19 23:59 23:59 23:59 23:59 Intake Total 860 / 860 2480 / 2480 3843 / 3843 360 / 360 Output Total 1350 / 1350 703 / 703 400 / 400 Balance 860 / 860 1130 / 1130 3140 / 3140 -40 / -40 - Physical Exam Oriented: Normal Eyes: Normal Ear: Normal Nose: Normal Throat: Normal Respiratory: Right, Left, Diminished, Rhonchi Cardiovascular: Normal : Normal Auscultation: Bowel Sounds: Normal Tenderness: Normal Skin: Normal Musculoskeletal: Normal Psychiatric: Normal Mood Description: Calm Affect: Normal Speech Pattern: Clear, Appropriate - Laboratory and Diagnostics Result Diagrams: 10/16/19 04:35 10/16/19 04:35 Labs: 10/13/19 12:20 Blood Blood Culture - Preliminary 10/13/19 12:10 Blood Blood Culture - Preliminary Laboratory WBC 6.3 X10^3/uL (3.6-10.0) 10/16/19 04:35 RBC 3.75 X10^6/uL (4.7-6.0) L 10/16/19 04:35 Hgb 11.4 g/dL (13.5-18.0) L 10/16/19 04:35 Hct 33.7 % (42.0-54.0) L 10/16/19 04:35 MCV 90.0 fL (80.0-100.0) 10/16/19 04:35 MCH 30.5 pg (27.0-34.0) 10/16/19 04:35 MCHC 33.9 g/dL (33.0-35.0) 10/16/19 04:35 RDW 13.0 % (11.6-16.5) 10/16/19 04:35 Plt Count 156 X10^3/uL (150.0-450.0) 10/16/19 04:35 Plt Count Comment Decreased (ADEQUATE) 10/15/19 04:25 MPV 8.8 fL (7.4-11.0) 10/16/19 04:35 Neut % (Auto) 84.0 % (42.0-75.0) H 10/16/19 04:35 Lymph % (Auto) 9.6 % (21.0-51.0) L 10/16/19 04:35 [place] % (Auto) 6.0 % (0.0-13.0) 10/16/19 04:35 Eos % (Auto) 0.1 % (0.9-2.9) L 10/16/19 04:35 Baso % (Auto) 0.3 % (0.2-1.0) 10/16/19 04:35 Neut # (Auto) 5.3 x10^3/uL (2.2-4.8) H 10/16/19 04:35 Lymph # (Auto) 0.6 X10^3/uL (1.3-2.9) L 10/16/19 04:35 [place] # (Auto) 0.4 x10^3/uL (0.3-0.8) 10/16/19 04:35 Eos # (Auto) 0.0 x10^3/uL (0.0-0.2) 10/16/19 04:35 Baso # (Auto) 0.0 X10^3/uL (0.0-0.1) 10/16/19 04:35 Absolute Nucleated RBC 0.2 /100WBC 10/16/19 04:35 Giant Platelets Few 10/15/19 04:25 Plt Morphology Comment Abnormal (NORMAL) 10/15/19 04:25 RBC Morphology Normal (NORMAL) 10/15/19 04:25 D-Dimer 615 ng/mL (0-400) H* 10/13/19 22:09 Sample Site Rb 10/16/19 09:04 ABG pH 7.440 (7.35-7.45) 10/16/19 09:04 ABG pCO2 42.0 mmHg (35.0-45.0) 10/16/19 09:04 ABG pO2 49.0 mmHg (80.0-100.0) L* 10/16/19 09:04 ABG HCO3 28.5 mmol/L (22-26) H 10/16/19 09:04 ABG O2 Saturation 86.0 % (90-100) L 10/16/19 09:04 ABG Base Excess 3.9 mmol/L (-2.0-2.0) H 10/16/19 09:04 Obed Test Na 10/16/19 09:04 A-a Gradient 48.0 mmHg 10/16/19 09:04 FiO2 21.0 10/16/19 09:04 Blood Gas Comments Natalia well aw/gmb 10/16/19 09:04 Sodium 136 mmol/L (136-145) 10/16/19 04:35 Corrected Sodium 140 mmol/L (136-145) 10/16/19 04:35 Potassium 3.3 mmol/L (3.5-5.1) L 10/16/19 04:35 Chloride 101 mmol/L (98-107) 10/16/19 04:35 Carbon Dioxide 27.8 mmol/L (21-32) 10/16/19 04:35 BUN 29 mg/dL (7-18) H 10/16/19 04:35 Creatinine 1.11 mg/dL (0.70-1.30) 10/16/19 04:35 Est GFR (MDRD) Af Amer > 60 (>60) 10/16/19 04:35 Est GFR (MDRD) Non-Af > 60 (>60) 10/16/19 04:35 Glucose 279 mg/dL (65-99) H 10/16/19 04:35 Calcium 8.7 mg/dL (8.5-10.1) 10/16/19 04:35 Corrected Calcium 10.1 mg/dL (8.5-10.1) 10/16/19 04:35 Magnesium 1.8 mg/dL (1.7-2.9) 10/16/19 04:45 Ferritin 1561 ng/mL (26-388) H 10/15/19 04:25 Total Bilirubin 0.30 mg/dL (0.2-1.0) 10/16/19 04:35 AST 28 Units/L (15-37) 10/16/19 04:35 ALT 32 Units/L (12-78) 10/16/19 04:35 Alkaline Phosphatase 32 Units/L (46-116) L 10/16/19 04:35 Troponin I < 0.02 ng/mL (0-1.5) 10/15/19 04:25 C-Reactive Protein 61.00 mg/L (0-3.0) H 10/16/19 04:35 B-Natriuretic Peptide 301 pg/mL (0-79) H 10/15/19 04:25 Total Protein 6.5 g/dL (6.4-8.2) 10/16/19 04:35 Albumin 2.3 g/dL (3.4-5.0) L 10/16/19 04:35 Globulin 4.2 g/dL (2.5-4.5) 10/16/19 04:35 Albumin/Globulin Ratio 0.5 Ratio (1.1-2.1) L 10/16/19 04:35 SARS-CoV-2 (PCR) Positive (NEGATIVE) A 10/13/19 12:03 Blood Type A POSITIVE 10/14/19 18:48 Antibody Screen Negative 10/14/19 18:48 - Plan (1) COVID-19 Status: Acute Plan: Droplet Precautions. 10/13/19 Plaquenel, Zinc, Vtamin C started. 10/14/19 Antibiotics changed to Zithromax 500mg IV, Zosyn 3.375 IV, Resdesiver added. Nebs. Convalescent plasma ordered. 10/15/19 Xopenex/Pulmicort Nebs started. Convalescent plasma given. 10/16/19 ABG...PO2 49 on RA (2) Pneumonia Status: Acute Plan: IV antibiotics, CXR, ABG (3) Hyponatremia Status: Acute Plan: IVF with NS, Labs (4) CAD (coronary artery disease) Status: Chronic (5) Diabetes mellitus Status: Chronic Qualifiers: Diabetes mellitus type: type 2 Plan: Sliding scae coverage (6) Hypertension Status: Chronic Qualifiers: Hypertension type: essential hypertension Plan: Monitor BP. Home meds. (7) COPD (chronic obstructive pulmonary disease) Status: Acute (8) Hypoxia Status: Acute Plan: Oxygen, ABGs. 10/16/19 ABG...PO2 49 on RA
[2019-10-16] MEDS: ZITHROMAX INJ 500 MG VIAL 500 MG in NS 250 ML IV 250 ML IV SCH (10:36)
[2019-10-16] MEDS: SNACK - Diabetic Appropriate PO SCH (21:14)
[2019-10-16] MEDS: RESTORIL CAP 15 MG PO PRN (21:15)
[2019-10-16] MEDS: LOVENOX INJ 40 MG SYR SC SCH (21:17)
[2019-10-17] MEDS: XOPENEX 1.25 MG/3 ML NEBULE NEB SCH ×4 (01:10→16:55)
[2019-10-17] MEDS: BENADRYL CAP/TAB 25 MG PO SCH ×3 (02:10→21:06)
[2019-10-17] MEDS: SOLU-Medrol 125 MG VIAL IVP SCH ×4 (03:57→21:10)
[2019-10-17] MEDS: ZOSYN VIAL 3.375 GRAMS 3.375 G in NS 100 ML IV + SPIKE MINIBAG* 100 ML IV SCH (05:26)
[2019-10-17] MEDS: HumuLIN R SUBCUT PRN ×4 (05:56→21:10)
[2019-10-17 06:22] LABS: BASOPHILS % (AUTO) 0 % (0.2-1.0); HEMOGLOBIN 11.2 g/dL (13.5-18.0); LYMPHOCYTES # (AUTO) 0.5 X10^3/uL (1.3-2.9); LYMPHOCYTES % (AUTO) 8.8 % (21.0-51.0); MEAN CORPUSCULAR HEMOGLOBIN 30.2 pg (27.0-34.0); MEAN CORPUSCULAR HGB CONC 33.8 g/dL (33.0-35.0); MEAN CORPUSCULAR VOLUME 89.4 fL (80.0-100.0); MONOCYTES # (AUTO) 0.4 x10^3/uL (0.3-0.8); MONOCYTES % (AUTO) 6.4 % (0.0-13.0); NEUTROPHILS # (AUTO) 5.1 x10^3/uL (2.2-4.8); NEUTROPHILS % (AUTO) 84.8 % (42.0-75.0); PLATELET COUNT 174 X10^3/uL (150.0-450.0); RED BLOOD COUNT 3.69 X10^6/uL (4.7-6.0)
[2019-10-17 06:40] LABS: ALANINE AMINOTRANSFERASE 25 Units/L (12-78); ALBUMIN 2.3 g/dL (3.4-5.0); ALKALINE PHOSPHATASE 31 Units/L (46-116); ASPARTATE AMINO TRANSFERASE 21 Units/L (15-37); BLOOD UREA NITROGEN 27 mg/dL (7-18); CALCIUM 8.6 mg/dL (8.5-10.1); CARBON DIOXIDE 26.5 mmol/L (21-32); CHLORIDE 102 mmol/L (98-107); COR NA(FOR HYPERGLY) 140 mmol/L (136-145); CREATININE 1.02 mg/dL (0.70-1.30); MAGNESIUM 1.8 mg/dL (1.7-2.9); SODIUM 135 mmol/L (136-145); TOTAL PROTEIN 6.1 g/dL (6.4-8.2); eGFR NON BLACK RACES > 60 (>60)
[2019-10-17] MEDS: PULMICORT NEB TX 0.5 MG NEB SCH ×2 (08:50→21:43)
[2019-10-17] MEDS ORDERED: GLUCOPHAGE ONE ×2 (08:52→20:25)
[2019-10-17 09:00] LABS: ABG BASE EXCESS 2.2 mmol/L (-2.0-2.0); ABG HCO3 26.5 mmol/L (22-26)
[2019-10-17] MEDS: VITAMIN C PO SCH (09:03)
[2019-10-17] MEDS: PLAQUENIL PO SCH ×2 (09:03→21:08)
[2019-10-17] MEDS: ZESTRIL TAB 5 MG PO SCH (09:04)
[2019-10-17] MEDS: PEPCID TAB 20 MG PO SCH ×2 (09:04→21:08)
[2019-10-17] MEDS: ZINC SULFATE PO SCH ×2 (09:04→21:09)
[2019-10-17] MEDS: PROTONIX TAB 40 MG PO SCH ×2 (09:04→21:08)
[2019-10-17] MEDS: GLUCOPHAGE PO SCH ×2 (09:04→21:06)
[2019-10-17] MEDS: ALDACTONE TAB 25 MG PO SCH (09:04)
[2019-10-17] MEDS: MAG-OX TAB PO SCH ×2 (09:04→21:08)
[2019-10-17] MEDS: ZITHROMAX INJ 500 MG VIAL 500 MG in NS 250 ML IV 250 ML IV SCH (09:05)
[2019-10-17] MEDS: ROBITUSSIN DM PO SCH ×4 (09:05→21:09)
[2019-10-17] MEDS: PLAVIX PO SCH (09:05)
[2019-10-17] MEDS: REMDESIVIR (INVESTIGATIONAL DRUG GS-5734) 100 MG in NS 250 ML IV 250 ML IV SCH (09:06)
[2019-10-17] MEDS: LASIX PO SCH ×2 (09:07→16:59)
[2019-10-17] MEDS: COREG TAB 6.25 MG PO SCH ×2 (09:07→21:07)
[2019-10-17] MEDS: K-DUR TAB 20 MEQ PO PRN (11:13)
--- NOTE | 2019-10-17 12:25 | RAD ---
HISTORYSOB, PNEUMONIASTUDYPortable AP chestCOMPARISONJuly 2019FINDINGSThe heart size remains mildly enlarged status post CABG. There is no pleural effusion or congestion.IMPRESSIONThere is diffuse interstitial lung infiltrates, overall worse on the right lung than the left. There are multiple old left posterior rib fractures. There are prominent osteophytes about the AC joints. No significant recent change of diffuse right lung more than left interstitial like pneumonitis or edemaElectronically signed by: DILIA HILL (Oct 17, 2019 12:23:24)
[2019-10-17] MEDS: ZOSYN VIAL 4.5 GRAMS 4.5 G in NS 100 ML IV + SPIKE MINIBAG* 100 ML IV SCH ×2 (15:00→21:10)
--- NOTE | 2019-10-17 17:34 | PCM.PROG ---
Progress Note - Progress Note for Day of Date of Exam: 10/17/19 - Subjective Subjective: The patient is a 69yo WM admitted with Covid + Pneumonia and hypoxia. Has history of COPD, CABG, DM, HTN, Dyslipidiemia. Lying in bed with O2 at 2.5 L/M on. Patient continues to feel weak but states he is feeling much better. Denies increased SOB or dyspnea. Is using neb treatment at present. Denies CP or increasing edema. Did receive convalescent plasma on 10/15/19. Blood sugars are better controlled with starting insulin. Denies any other complaints at present. POC discussed with patient. No new complaints. - Past Medical Family Social History Past Med/Fam/Surg Hx: No changes since H&P, Changes noted (describe) Allergies: Allergies No Known Drug Allergies Allergy (Verified 10/13/19 18:06) - Review of Systems ROS: No change since H&P - Vital Signs and I&O's Vital Signs: Temperature 97.7 F Pulse Rate [Apical] 66 Pulse Rate 80 Respiratory Rate 31 Blood Pressure [Right Arm] 106/57 Blood Pressure [Left Arm] 133/64 Blood Pressure 135/60 O2 Sat by Pulse Oximetry 99 Intake and Output: Intake & Output 10/14/19 10/15/19 10/16/19 10/17/19 23:59 23:59 23:59 23:59 Intake Total 2480 / 2480 3843 / 3843 2760 / 2760 1690 / 1690 Output Total 1350 / 1350 703 / 703 1100 / 1100 1200 / 1200 Balance 1130 / 1130 3140 / 3140 1660 / 1660 490 / 490 - Physical Exam Oriented: Normal Eyes: Normal Ear: Normal Nose: Normal, Discharge Throat: Normal Respiratory: Right, Left, Diminished Cardiovascular: Normal : Normal Auscultation: Bowel Sounds: Normal Tenderness: Normal Skin: Normal Musculoskeletal: Normal Psychiatric: Normal Mood Description: Calm Affect: Normal Speech Pattern: Clear, Appropriate - Laboratory and Diagnostics Result Diagrams: 10/17/19 06:00 10/17/19 06:00 Labs: 10/13/19 12:20 Blood Blood Culture - Preliminary 10/13/19 12:10 Blood Blood Culture - Preliminary Laboratory WBC 6.0 X10^3/uL (3.6-10.0) 10/17/19 06:00 RBC 3.69 X10^6/uL (4.7-6.0) L 10/17/19 06:00 Hgb 11.2 g/dL (13.5-18.0) L 10/17/19 06:00 Hct 33.0 % (42.0-54.0) L 10/17/19 06:00 MCV 89.4 fL (80.0-100.0) 10/17/19 06:00 MCH 30.2 pg (27.0-34.0) 10/17/19 06:00 MCHC 33.8 g/dL (33.0-35.0) 10/17/19 06:00 RDW 13.0 % (11.6-16.5) 10/17/19 06:00 Plt Count 174 X10^3/uL (150.0-450.0) 10/17/19 06:00 Plt Count Comment Decreased (ADEQUATE) 10/15/19 04:25 MPV 8.0 fL (7.4-11.0) 10/17/19 06:00 Neut % (Auto) 84.8 % (42.0-75.0) H 10/17/19 06:00 Lymph % (Auto) 8.8 % (21.0-51.0) L 10/17/19 06:00 [place] % (Auto) 6.4 % (0.0-13.0) 10/17/19 06:00 Eos % (Auto) 0.0 % (0.9-2.9) L 10/17/19 06:00 Baso % (Auto) 0 % (0.2-1.0) L 10/17/19 06:00 Neut # (Auto) 5.1 x10^3/uL (2.2-4.8) H 10/17/19 06:00 Lymph # (Auto) 0.5 X10^3/uL (1.3-2.9) L 10/17/19 06:00 [place] # (Auto) 0.4 x10^3/uL (0.3-0.8) 10/17/19 06:00 Eos # (Auto) 0.0 x10^3/uL (0.0-0.2) 10/17/19 06:00 Baso # (Auto) 0.0 X10^3/uL (0.0-0.1) 10/17/19 06:00 Absolute Nucleated RBC 0.1 /100WBC 10/17/19 06:00 Giant Platelets Few 10/15/19 04:25 Plt Morphology Comment Abnormal (NORMAL) 10/15/19 04:25 RBC Morphology Normal (NORMAL) 10/15/19 04:25 D-Dimer 615 ng/mL (0-400) H* 10/13/19 22:09 Sample Site Rb 10/17/19 08:54 ABG pH 7.440 (7.35-7.45) 10/17/19 08:54 ABG pCO2 39.0 mmHg (35.0-45.0) 10/17/19 08:54 ABG pO2 53.0 mmHg (80.0-100.0) L 10/17/19 08:54 ABG HCO3 26.5 mmol/L (22-26) H 10/17/19 08:54 ABG O2 Saturation 88.0 % (90-100) L 10/17/19 08:54 ABG Base Excess 2.2 mmol/L (-2.0-2.0) H 10/17/19 08:54 Obed Test Na 10/17/19 08:54 A-a Gradient 48.0 mmHg 10/17/19 08:54 FiO2 21.0 10/17/19 08:54 Blood Gas Comments Natalia well aw/gmb 10/17/19 08:54 Sodium 135 mmol/L (136-145) L 10/17/19 06:00 Corrected Sodium 140 mmol/L (136-145) 10/17/19 06:00 Potassium 3.4 mmol/L (3.5-5.1) L 10/17/19 06:00 Chloride 102 mmol/L (98-107) 10/17/19 06:00 Carbon Dioxide 26.5 mmol/L (21-32) 10/17/19 06:00 BUN 27 mg/dL (7-18) H 10/17/19 06:00 Creatinine 1.02 mg/dL (0.70-1.30) 10/17/19 06:00 Est GFR (MDRD) Af Amer > 60 (>60) 10/17/19 06:00 Est GFR (MDRD) Non-Af > 60 (>60) 10/17/19 06:00 Glucose 323 mg/dL (65-99) H 10/17/19 06:00 Calcium 8.6 mg/dL (8.5-10.1) 10/17/19 06:00 Corrected Calcium 10.0 mg/dL (8.5-10.1) 10/17/19 06:00 Magnesium 1.8 mg/dL (1.7-2.9) 10/17/19 06:00 Ferritin 1561 ng/mL (26-388) H 10/15/19 04:25 Total Bilirubin 0.20 mg/dL (0.2-1.0) 10/17/19 06:00 AST 21 Units/L (15-37) 10/17/19 06:00 ALT 25 Units/L (12-78) 10/17/19 06:00 Alkaline Phosphatase 31 Units/L (46-116) L 10/17/19 06:00 Troponin I < 0.02 ng/mL (0-1.5) 10/15/19 04:25 C-Reactive Protein 61.00 mg/L (0-3.0) H 10/16/19 04:35 B-Natriuretic Peptide 301 pg/mL (0-79) H 10/15/19 04:25 Total Protein 6.1 g/dL (6.4-8.2) L 10/17/19 06:00 Albumin 2.3 g/dL (3.4-5.0) L 10/17/19 06:00 Globulin 3.8 g/dL (2.5-4.5) 10/17/19 06:00 Albumin/Globulin Ratio 0.6 Ratio (1.1-2.1) L 10/17/19 06:00 SARS-CoV-2 (PCR) Positive (NEGATIVE) A 10/13/19 12:03 Blood Type A POSITIVE 10/14/19 18:48 Antibody Screen Negative 10/14/19 18:48 - Plan (1) COVID-19 Status: Acute Plan: Droplet Precautions. 10/13/19 Plaquenel, Zinc, Vtamin C started. 10/14/19 Antibiotics changed to Zithromax 500mg IV, Zosyn 3.375 IV, Resdesiver added. Nebs. Convalescent plasma ordered. 10/15/19 Xopenex/Pulmicort Nebs started. Convalescent plasma given. 10/16/19 Convalesecent plasma ordered for 10/17/19. 10/16/19 ABG...PO2 49 on RA. 10/17/19 Convalesecent plasma to be given today. 10/17/19 ABG...PO2 53 on RA (2) Pneumonia Status: Acute Plan: IV antibiotics, CXR, ABG. 10/17/19: CXR: Diffuse interstitial infiltrates with right worse than left. (3) Hyponatremia Status: Acute Plan: IVF with NS, Labs (4) CAD (coronary artery disease) Status: Chronic (5) Diabetes mellitus Status: Chronic Qualifiers: Diabetes mellitus type: type 2 Plan: Sliding scae coverage (6) Hypertension Status: Chronic Qualifiers: Hypertension type: essential hypertension Plan: Monitor BP. Home meds. (7) COPD (chronic obstructive pulmonary disease) Status: Acute (8) Hypoxia Status: Acute Plan: Oxygen, ABGs. 10/16/19 ABG...PO2 49 on RA
[2019-10-17] MEDS: NS 1/2 1000 ML IV 1,000 ML IV SCH ×2 (19:24→19:25)
[2019-10-17] MEDS: SNACK - Diabetic Appropriate PO SCH (19:25)
[2019-10-17] MEDS: LOVENOX INJ 40 MG SYR SC SCH (21:07)
[2019-10-18] MEDS: XOPENEX 1.25 MG/3 ML NEBULE NEB SCH ×4 (00:50→17:00)
[2019-10-18] MEDS: BENADRYL CAP/TAB 25 MG PO SCH ×3 (01:25→20:39)
[2019-10-18] MEDS: NS 1/2 1000 ML IV 1,000 ML IV SCH ×2 (04:39→21:33)
[2019-10-18] MEDS: SOLU-Medrol 125 MG VIAL IVP SCH ×4 (04:40→21:33)
[2019-10-18] MEDS: ZOSYN VIAL 4.5 GRAMS 4.5 G in NS 100 ML IV + SPIKE MINIBAG* 100 ML IV SCH ×3 (06:15→21:33)
[2019-10-18] MEDS: HumuLIN R SUBCUT PRN ×2 (06:18→21:33)
[2019-10-18] MEDS: ALDACTONE TAB 25 MG PO SCH (08:51)
[2019-10-18] MEDS: PEPCID TAB 20 MG PO SCH ×2 (08:52→20:40)
[2019-10-18] MEDS: ZESTRIL TAB 5 MG PO SCH (08:53)
[2019-10-18] MEDS: PLAQUENIL PO SCH ×2 (08:54→20:41)
[2019-10-18] MEDS: PROTONIX TAB 40 MG PO SCH ×2 (08:54→20:41)
[2019-10-18] MEDS: MAG-OX TAB PO SCH ×2 (08:54→20:40)
[2019-10-18] MEDS: ZITHROMAX INJ 500 MG VIAL 500 MG in NS 250 ML IV 250 ML IV SCH (08:55)
[2019-10-18] MEDS: ZINC SULFATE PO SCH ×2 (08:55→20:40)
[2019-10-18] MEDS: VITAMIN C PO SCH (08:55)
[2019-10-18] MEDS: REMDESIVIR (INVESTIGATIONAL DRUG GS-5734) 100 MG in NS 250 ML IV 250 ML IV SCH (08:56)
[2019-10-18] MEDS: PLAVIX PO SCH (08:56)
[2019-10-18] MEDS: ROBITUSSIN DM PO SCH ×4 (08:57→20:40)
[2019-10-18] MEDS: LASIX PO SCH ×2 (08:57→18:27)
[2019-10-18] MEDS: GLUCOPHAGE PO SCH ×2 (09:00→20:41)
[2019-10-18] MEDS: COREG TAB 6.25 MG PO SCH ×2 (09:00→20:39)
[2019-10-18] MEDS: PULMICORT NEB TX 0.5 MG NEB SCH ×2 (09:30→21:27)
--- NOTE | 2019-10-18 09:42 | PCM.PROG ---
Progress Note - Progress Note for Day of Date of Exam: 10/18/19 - Subjective Subjective: IS A 69 YEAR OLD PATIENT OF . HE IS BEING TREATED FOR COVID-19, PNEUMONIA, SOB, AND FEVER. HE HAS A HISTORY OF DIABETES, CHF, AND HTN. TODAY, HE IS ALERT AND ORIENTED, LYING IN BED ON MORNING ROUNDS. HE CONTINUES WITH WEAKNESS AND A NON-PRODUCTIVE COUGH. HE RECEIVED CONVALESCENT PLASMA ON 10/15/19. ON EXAMINATION, HEART IS REGULAR IN RATE AND RHYTHM. BILATERAL LUNGS ARE NOTED WITH DIMINISHED LUNG SOUNDS THROUGHOUT. ABDOMEN IS ROUND, SOFT, AND NON-TENDER WITH NORMAL BOWEL SOUNDS NOTED IN ALL QUADRANTS. HIS VITALS THIS MORNING ARE: 98.0-53-20-96%NC-153/76. LABS WERE OBTAINED. ABNORMAL LAB VALUES INCLUDE THE FOLLOWING: RBC 3.69, HGB 11.2, HCT 33.0, SODIUM 135, POT ASSIUM 3.4, BUN 27, GLUCOSE 323, ALK PHOS 31, CRP 16.30, TOTAL PROTEIN 6.1, ALBUMIN 2.3. BLOOD CULTURES ARE PENDING. HE IS CURRENTLY RECEIVING: REMDESIVIR 100MG IV DAILY, PLAQUENIL 200MG PO BID, AZITHROMYCIN 500MG IV DAILY, PULMICORT NEB TX, XOPENEX NEB TX, SOLU-MEDROL 125MG IV Q6H, ZOSYN 4.5G IV TID, THE POTASSIUM AND MAGNESIUM PROTOCOLS, AND HOME MEDICATIONS WERE RESUMED. WE WILL CONTINUE WITH CURRENT PLAN OF CARE TODAY. OTHERWISE, WE WILL FOLLOW UP WITH AM LABS AND CONTINUE TO MONITOR. - Past Medical Family Social History Past Med/Fam/Surg Hx: No changes since H&P, Changes noted (describe) Allergies: Allergies No Known Drug Allergies Allergy (Verified 10/13/19 18:06) - Review of Systems ROS: No change since H&P - Vital Signs and I&O's Vital Signs: Temperature 98.0 F Pulse Rate [Apical] 66 Pulse Rate 70 Respiratory Rate 20 Blood Pressure [Right Arm] 106/57 Blood Pressure [Left Arm] 133/64 Blood Pressure 157/64 O2 Sat by Pulse Oximetry 80 Intake and Output: Intake & Output 10/15/19 10/16/19 10/17/19 10/18/19 11:59 11:59 11:59 11:59 Intake Total 2680 / 2680 3703 / 3703 2710 / 2710 6 / 2096 Output Total 1350 / 1350 403 / 403 1200 / 1200 1900 / 1900 Balance 1330 / 1330 3300 / 3300 1510 / 1510 196 / 196 - Physical Exam Oriented: Normal Eyes: Normal Ear: Normal Nose: Normal, Discharge Throat: Normal Respiratory: Right, Left, Diminished Cardiovascular: Normal : Normal Auscultation: Bowel Sounds: Normal Palpation: Normal Tenderness: Normal Skin: Normal Musculoskeletal: Normal Psychiatric: Normal Mood Description: Calm Affect: Normal Speech Pattern: Clear, Appropriate - Laboratory and Diagnostics Result Diagrams: 10/17/19 06:00 10/17/19 06:00 Labs: 10/13/19 12:20 Blood Blood Culture - Preliminary 10/13/19 12:10 Blood Blood Culture - Preliminary Laboratory WBC 6.0 X10^3/uL (3.6-10.0) 10/17/19 06:00 RBC 3.69 X10^6/uL (4.7-6.0) L 10/17/19 06:00 Hgb 11.2 g/dL (13.5-18.0) L 10/17/19 06:00 Hct 33.0 % (42.0-54.0) L 10/17/19 06:00 MCV 89.4 fL (80.0-100.0) 10/17/19 06:00 MCH 30.2 pg (27.0-34.0) 10/17/19 06:00 MCHC 33.8 g/dL (33.0-35.0) 10/17/19 06:00 RDW 13.0 % (11.6-16.5) 10/17/19 06:00 Plt Count 174 X10^3/uL (150.0-450.0) 10/17/19 06:00 Plt Count Comment Decreased (ADEQUATE) 10/15/19 04:25 MPV 8.0 fL (7.4-11.0) 10/17/19 06:00 Neut % (Auto) 84.8 % (42.0-75.0) H 10/17/19 06:00 Lymph % (Auto) 8.8 % (21.0-51.0) L 10/17/19 06:00 [place] % (Auto) 6.4 % (0.0-13.0) 10/17/19 06:00 Eos % (Auto) 0.0 % (0.9-2.9) L 10/17/19 06:00 Baso % (Auto) 0 % (0.2-1.0) L 10/17/19 06:00 Neut # (Auto) 5.1 x10^3/uL (2.2-4.8) H 10/17/19 06:00 Lymph # (Auto) 0.5 X10^3/uL (1.3-2.9) L 10/17/19 06:00 [place] # (Auto) 0.4 x10^3/uL (0.3-0.8) 10/17/19 06:00 Eos # (Auto) 0.0 x10^3/uL (0.0-0.2) 10/17/19 06:00 Baso # (Auto) 0.0 X10^3/uL (0.0-0.1) 10/17/19 06:00 Absolute Nucleated RBC 0.1 /100WBC 10/17/19 06:00 Giant Platelets Few 10/15/19 04:25 Plt Morphology Comment Abnormal (NORMAL) 10/15/19 04:25 RBC Morphology Normal (NORMAL) 10/15/19 04:25 D-Dimer 615 ng/mL (0-400) H* 10/13/19 22:09 Sample Site Rb 10/17/19 08:54 ABG pH 7.440 (7.35-7.45) 10/17/19 08:54 ABG pCO2 39.0 mmHg (35.0-45.0) 10/17/19 08:54 ABG pO2 53.0 mmHg (80.0-100.0) L 10/17/19 08:54 ABG HCO3 26.5 mmol/L (22-26) H 10/17/19 08:54 ABG O2 Saturation 88.0 % (90-100) L 10/17/19 08:54 ABG Base Excess 2.2 mmol/L (-2.0-2.0) H 10/17/19 08:54 Obed Test Na 10/17/19 08:54 A-a Gradient 48.0 mmHg 10/17/19 08:54 FiO2 21.0 10/17/19 08:54 Blood Gas Comments Natalia well aw/gmb 10/17/19 08:54 Sodium 135 mmol/L (136-145) L 10/17/19 06:00 Corrected Sodium 140 mmol/L (136-145) 10/17/19 06:00 Potassium 3.4 mmol/L (3.5-5.1) L 10/17/19 06:00 Chloride 102 mmol/L (98-107) 10/17/19 06:00 Carbon Dioxide 26.5 mmol/L (21-32) 10/17/19 06:00 BUN 27 mg/dL (7-18) H 10/17/19 06:00 Creatinine 1.02 mg/dL (0.70-1.30) 10/17/19 06:00 Est GFR (MDRD) Af Amer > 60 (>60) 10/17/19 06:00 Est GFR (MDRD) Non-Af > 60 (>60) 10/17/19 06:00 Glucose 323 mg/dL (65-99) H 10/17/19 06:00 Calcium 8.6 mg/dL (8.5-10.1) 10/17/19 06:00 Corrected Calcium 10.0 mg/dL (8.5-10.1) 10/17/19 06:00 Magnesium 1.8 mg/dL (1.7-2.9) 10/17/19 06:00 Ferritin 1561 ng/mL (26-388) H 10/15/19 04:25 Total Bilirubin 0.20 mg/dL (0.2-1.0) 10/17/19 06:00 AST 21 Units/L (15-37) 10/17/19 06:00 ALT 25 Units/L (12-78) 10/17/19 06:00 Alkaline Phosphatase 31 Units/L (46-116) L 10/17/19 06:00 Troponin I < 0.02 ng/mL (0-1.5) 10/15/19 04:25 C-Reactive Protein 16.30 mg/L (0-3.0) H 10/18/19 04:39 B-Natriuretic Peptide 301 pg/mL (0-79) H 10/15/19 04:25 Total Protein 6.1 g/dL (6.4-8.2) L 10/17/19 06:00 Albumin 2.3 g/dL (3.4-5.0) L 10/17/19 06:00 Globulin 3.8 g/dL (2.5-4.5) 10/17/19 06:00 Albumin/Globulin Ratio 0.6 Ratio (1.1-2.1) L 10/17/19 06:00 SARS-CoV-2 (PCR) Positive (NEGATIVE) A 10/13/19 12:03 Blood Type A POSITIVE 10/14/19 18:48 Antibody Screen Negative 10/14/19 18:48 - Plan (1) COVID-19 Status: Acute Plan: Droplet Precautions. 10/13/19 Plaquenel, Zinc, Vtamin C started. Antibiotics changed to Zithromax 500mg IV, Zosyn 3.375 IV, Resdesiver added. Nebs. Convalescent plasma ordered. 10/15/19 Xopenex/Pulmicort Nebs started. Convalescent plasma given. 10/16/19 Convalesecent plasma ordered for 10/17/19. 10/16/19 ABG...PO2 49 on RA. 10/17/19 Convalesecent plasma to be given today. 10/17/19 ABG...PO2 53 on RA (2) Pneumonia Status: Acute Qualifiers: Pneumonia type: due to unspecified organism Laterality: bilateral Lung location: unspecified part of lung Qualified Code(s): J18.9 - Pneumonia, unspecified organism (3) Hyponatremia Status: Acute Plan: IVF with NS, Labs (4) Hypoxia Status: Acute (5) CAD (coronary artery disease) Status: Chronic Qualifiers: Coronary Disease-Associated Artery/Lesion type: [place] artery [place] vs. 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 Home meds.
[2019-10-18] MEDS ORDERED: NS 1/2 1000 ML IV 1,000 ML IV ONE (10:29)
[2019-10-18] MEDS ORDERED: GLUCOPHAGE ONE (19:20)
[2019-10-18] MEDS: SNACK - Diabetic Appropriate PO SCH (20:41)
[2019-10-18] MEDS: LOVENOX INJ 40 MG SYR SC SCH (21:33)
[2019-10-19] MEDS: NS 1/2 1000 ML IV 1,000 ML IV SCH ×2 (00:05→21:14)
[2019-10-19] MEDS: XOPENEX 1.25 MG/3 ML NEBULE NEB SCH ×5 (00:55→18:45)
[2019-10-19] MEDS: BENADRYL CAP/TAB 25 MG PO SCH ×3 (02:34→17:14)
[2019-10-19] MEDS: SOLU-Medrol 125 MG VIAL IVP SCH ×4 (05:00→21:13)
[2019-10-19 05:36] LABS: BASOPHILS % (AUTO) 0 % (0.2-1.0); HEMATOCRIT 33.7 % (42.0-54.0); HEMOGLOBIN 11.6 g/dL (13.5-18.0); LYMPHOCYTES # (AUTO) 0.5 X10^3/uL (1.3-2.9); LYMPHOCYTES % (AUTO) 9.6 % (21.0-51.0); MEAN CORPUSCULAR HEMOGLOBIN 30.2 pg (27.0-34.0); MEAN CORPUSCULAR HGB CONC 34.3 g/dL (33.0-35.0); MEAN CORPUSCULAR VOLUME 88.1 fL (80.0-100.0); MEAN PLATELET VOLUME 8.2 fL (7.4-11.0); MONOCYTES # (AUTO) 0.2 x10^3/uL (0.3-0.8); MONOCYTES % (AUTO) 4.1 % (0.0-13.0); NEUTROPHILS % (AUTO) 86.3 % (42.0-75.0); PLATELET COUNT 194 X10^3/uL (150.0-450.0); RED BLOOD COUNT 3.83 X10^6/uL (4.7-6.0); RED CELL DISTRIBUTION WIDTH 12.7 % (11.6-16.5); WHITE BLOOD COUNT 5.8 X10^3/uL (3.6-10.0)
[2019-10-19] MEDS: ZOSYN VIAL 4.5 GRAMS 4.5 G in NS 100 ML IV + SPIKE MINIBAG* 100 ML IV SCH ×3 (05:43→21:13)
[2019-10-19 05:47] LABS: ALANINE AMINOTRANSFERASE 24 Units/L (12-78); ALBUMIN 2.2 g/dL (3.4-5.0); ALKALINE PHOSPHATASE 37 Units/L (46-116); ASPARTATE AMINO TRANSFERASE 16 Units/L (15-37); BLOOD UREA NITROGEN 19 mg/dL (7-18); CALCIUM 8.2 mg/dL (8.5-10.1); CARBON DIOXIDE 32.3 mmol/L (21-32); CHLORIDE 100 mmol/L (98-107); COR CA(FOR HYPOALB) 9.6 mg/dL (8.5-10.1); COR NA(FOR HYPERGLY) 140 mmol/L (136-145); CREATININE 0.92 mg/dL (0.70-1.30); SODIUM 135 mmol/L (136-145); eGFR NON BLACK RACES > 60 (>60)
[2019-10-19 06:22] LABS: ABG BASE EXCESS 12.4 mmol/L (-2.0-2.0)
[2019-10-19] MEDS: K-DUR TAB 20 MEQ PO PRN (06:22)
[2019-10-19 06:23] LABS: ABG HCO3 36.7 mmol/L (22-26)
--- NOTE | 2019-10-19 06:59 | RAD ---
HISTORY:Shortness of breathStudy: Single view chestComparison:10/17/2019Findings:Sternotomy changes are noted with stable mild cardiomegaly. Unchanged multifocal lung infiltrates suggestive of pneumonia. No pneumothorax or pleural effusion identified. Soft tissues are intact.IMPRESSION:Stable bilateral lung infiltrates.Electronically signed by: SHASHI YARBROUGH (Oct 19, 2019 06:58:01)
[2019-10-19] MEDS ORDERED: GLUCOPHAGE ONE ×2 (08:25→19:15)
[2019-10-19] MEDS ORDERED: COREG TAB 6.25 MG ONE (08:30)
[2019-10-19] MEDS: ALDACTONE TAB 25 MG PO SCH (08:56)
[2019-10-19] MEDS: COREG TAB 6.25 MG PO SCH ×2 (08:57→21:12)
[2019-10-19] MEDS: GLUCOPHAGE PO SCH ×2 (08:57→21:13)
[2019-10-19] MEDS: LASIX PO SCH ×2 (08:57→16:23)
[2019-10-19] MEDS: PLAVIX PO SCH (08:58)
[2019-10-19] MEDS: MAG-OX TAB PO SCH ×2 (08:58→21:12)
[2019-10-19] MEDS: PEPCID TAB 20 MG PO SCH ×2 (08:58→21:12)
[2019-10-19] MEDS: PROTONIX TAB 40 MG PO SCH ×2 (08:59→21:11)
[2019-10-19] MEDS: ROBITUSSIN DM PO SCH ×4 (08:59→21:11)
[2019-10-19] MEDS: VITAMIN C PO SCH (09:00)
[2019-10-19] MEDS: ZINC SULFATE PO SCH ×2 (09:00→21:11)
[2019-10-19] MEDS: ZESTRIL TAB 5 MG PO SCH (09:00)
[2019-10-19] MEDS: ZITHROMAX INJ 500 MG VIAL 500 MG in NS 250 ML IV 250 ML IV SCH (09:01)
--- NOTE | 2019-10-19 09:31 | PCM.PROG ---
Progress Note - Progress Note for Day of Date of Exam: 10/19/19 - Subjective Subjective: IS A 69 YEAR OLD PATIENT OF . HE IS BEING TREATED FOR COVID-19, PNEUMONIA, SOB, AND FEVER. HE HAS A HISTORY OF DIABETES, CHF, AND HTN. TODAY, HE IS ALERT AND ORIENTED, LYING IN BED ON MORNING ROUNDS. HE CONTINUES WITH WEAKNESS AND A NON-PRODUCTIVE COUGH. HE RECEIVED CONVALESCENT PLASMA ON 10/15/19. ON EXAMINATION, HEART IS REGULAR IN RATE AND RHYTHM. BILATERAL LUNGS ARE NOTED WITH DIMINISHED LUNG SOUNDS THROUGHOUT. ABDOMEN IS ROUND, SOFT, AND NON-TENDER WITH NORMAL BOWEL SOUNDS NOTED IN ALL QUADRANTS. HIS VITALS THIS MORNING ARE: 98.3-52-17-95%-137/61. LABS WERE OBTAINED. ABNORMAL LAB VALUES INCLUDE THE FOLLOWING: RBC 3.83, HGB 11.6, HCT 33.7, SODIUM 135, POTAS SIUM 3.2, CARBON DIOXIDE 32.3, BUN 19, GLUCOSE 311, CALCIUM 8.2, FERRITIN 735, ALK PHOS 37, CRP 11.50, TOTAL PROTEIN 6.0, ALBUMIN 2.2. BLOOD CULTURES ARE PENDING. HE IS CURRENTLY RECEIVING: REMDESIVIR 100MG IV DAILY, PLAQUENIL 200MG PO BID, AZITHROMYCIN 500MG IV DAILY, PULMICORT NEB TX, XOPENEX NEB TX, SOLU- MEDROL 125MG IV Q6H, ZOSYN 4.5G IV TID, THE POTASSIUM AND MAGNESIUM PROTOCOLS, AND HOME MEDICATIONS WERE RESUMED. WE WILL CONTINUE WITH CURRENT PLAN OF CARE TODAY. OTHERWISE, WE WILL FOLLOW UP WITH AM LABS AND CONTINUE TO MONITOR. - Past Medical Family Social History Past Med/Fam/Surg Hx: No changes since H&P, Changes noted (describe) Allergies: Allergies No Known Drug Allergies Allergy (Verified 10/13/19 18:06) - Review of Systems ROS: No change since H&P - Vital Signs and I&O's Vital Signs: Temperature 98.3 F Pulse Rate [Apical] 66 Pulse Rate 52 Respiratory Rate 17 Blood Pressure [Right Arm] 106/57 Blood Pressure [Left Arm] 133/64 Blood Pressure 137/61 O2 Sat by Pulse Oximetry 95 Intake and Output: Intake & Output 10/16/19 10/17/19 10/18/19 10/19/19 11:59 11:59 11:59 11:59 Intake Total 3703 / 3703 2710 / 2710 2096 / 2096 2760 / 2760 Output Total 403 / 403 1200 / 1200 1900 / 1900 Balance 3300 / 3300 1510 / 1510 196 / 196 2760 / 2760 - Physical Exam Oriented: Normal Eyes: Normal Ear: Normal Nose: Normal, Discharge Throat: Normal Respiratory: Right, Left, Diminished Cardiovascular: Normal : Normal Auscultation: Bowel Sounds: Normal Tenderness: Normal Skin: Normal Musculoskeletal: Normal Psychiatric: Normal Mood Description: Calm Affect: Normal Speech Pattern: Clear, Appropriate - Laboratory and Diagnostics Result Diagrams: 10/19/19 04:25 10/19/19 04:25 Labs: 10/13/19 12:20 Blood Blood Culture - Final 10/13/19 12:10 Blood Blood Culture - Final Laboratory WBC 5.8 X10^3/uL (3.6-10.0) 10/19/19 04:25 RBC 3.83 X10^6/uL (4.7-6.0) L 10/19/19 04:25 Hgb 11.6 g/dL (13.5-18.0) L 10/19/19 04:25 Hct 33.7 % (42.0-54.0) L 10/19/19 04:25 MCV 88.1 fL (80.0-100.0) 10/19/19 04:25 MCH 30.2 pg (27.0-34.0) 10/19/19 04:25 MCHC 34.3 g/dL (33.0-35.0) 10/19/19 04:25 RDW 12.7 % (11.6-16.5) 10/19/19 04:25 Plt Count 194 X10^3/uL (150.0-450.0) 10/19/19 04:25 Plt Count Comment Decreased (ADEQUATE) 10/15/19 04:25 MPV 8.2 fL (7.4-11.0) 10/19/19 04:25 Neut % (Auto) 86.3 % (42.0-75.0) H 10/19/19 04:25 Lymph % (Auto) 9.6 % (21.0-51.0) L 10/19/19 04:25 [place] % (Auto) 4.1 % (0.0-13.0) 10/19/19 04:25 Eos % (Auto) 0.0 % (0.9-2.9) L 10/19/19 04:25 Baso % (Auto) 0 % (0.2-1.0) L 10/19/19 04:25 Neut # (Auto) 5.0 x10^3/uL (2.2-4.8) H 10/19/19 04:25 Lymph # (Auto) 0.5 X10^3/uL (1.3-2.9) L 10/19/19 04:25 [place] # (Auto) 0.2 x10^3/uL (0.3-0.8) L 10/19/19 04:25 Eos # (Auto) 0.0 x10^3/uL (0.0-0.2) 10/19/19 04:25 Baso # (Auto) 0.0 X10^3/uL (0.0-0.1) 10/19/19 04:25 Absolute Nucleated RBC 0.1 /100WBC 10/19/19 04:25 Giant Platelets Few 10/15/19 04:25 Plt Morphology Comment Abnormal (NORMAL) 10/15/19 04:25 RBC Morphology Normal (NORMAL) 10/15/19 04:25 D-Dimer 615 ng/mL (0-400) H* 10/13/19 22:09 Sample Site [facility] 10/19/19 06:16 ABG pH 7.520 (7.35-7.45) H 10/19/19 06:16 ABG pCO2 45.0 mmHg (35.0-45.0) 10/19/19 06:16 ABG pO2 60.0 mmHg (80.0-100.0) L 10/19/19 06:16 ABG HCO3 36.7 mmol/L (22-26) H* 10/19/19 06:16 ABG O2 Saturation 93.0 % (90-100) 10/19/19 06:16 ABG Base Excess 12.4 mmol/L (-2.0-2.0) H 10/19/19 06:16 Obed Test Na 10/19/19 06:16 A-a Gradient 83.0 mmHg 10/19/19 06:16 FiO2 28.0 10/19/19 06:16 Blood Gas Comments Natalia abg well-mtf 10/19/19 06:16 Sodium 135 mmol/L (136-145) L 10/19/19 04:25 Corrected Sodium 140 mmol/L (136-145) 10/19/19 04:25 Potassium 3.2 mmol/L (3.5-5.1) L 10/19/19 04:25 Chloride 100 mmol/L (98-107) 10/19/19 04:25 Carbon Dioxide 32.3 mmol/L (21-32) H 10/19/19 04:25 BUN 19 mg/dL (7-18) H 10/19/19 04:25 Creatinine 0.92 mg/dL (0.70-1.30) 10/19/19 04:25 Est GFR (MDRD) Af Amer > 60 (>60) 10/19/19 04:25 Est GFR (MDRD) Non-Af > 60 (>60) 10/19/19 04:25 Glucose 311 mg/dL (65-99) H 10/19/19 04:25 Calcium 8.2 mg/dL (8.5-10.1) L 10/19/19 04:25 Corrected Calcium 9.6 mg/dL (8.5-10.1) 10/19/19 04:25 Magnesium 1.9 mg/dL (1.7-2.9) 10/19/19 04:25 Ferritin 735 ng/mL (26-388) H 10/19/19 04:25 Total Bilirubin 0.30 mg/dL (0.2-1.0) 10/19/19 04:25 AST 16 Units/L (15-37) 10/19/19 04:25 ALT 24 Units/L (12-78) 10/19/19 04:25 Alkaline Phosphatase 37 Units/L (46-116) L 10/19/19 04:25 Troponin I < 0.02 ng/mL (0-1.5) 10/15/19 04:25 C-Reactive Protein 11.50 mg/L (0-3.0) H 10/19/19 04:25 B-Natriuretic Peptide 301 pg/mL (0-79) H 10/15/19 04:25 Total Protein 6.0 g/dL (6.4-8.2) L 10/19/19 04:25 Albumin 2.2 g/dL (3.4-5.0) L 10/19/19 04:25 Globulin 3.8 g/dL (2.5-4.5) 10/19/19 04:25 Albumin/Globulin Ratio 0.6 Ratio (1.1-2.1) L 10/19/19 04:25 SARS-CoV-2 (PCR) Positive (NEGATIVE) A 10/13/19 12:03 Blood Type A POSITIVE 10/14/19 18:48 Antibody Screen Negative 10/14/19 18:48 - Plan (1) COVID-19 Status: Acute Plan: Droplet Precautions. 10/13/19 Plaquenel, Zinc, Vtamin C started. 10/14/19 Antibiotics changed to Zithromax 500mg IV, Zosyn 3.375 IV, Resdesiver added. Nebs. Convalescent plasma ordered. 10/15/19 Xopenex/Pulmicort Nebs started. Convalescent plasma given. 10/16/19 Convalesecent plasma ordered for 10/17/19. 10/16/19 ABG...PO2 49 on RA. 10/17/19 Convalesecent plasma to be giv en today. 10/17/19 ABG...PO2 53 on RA (2) Pneumonia Status: Acute Qualifiers: Pneumonia type: due to unspecified organism Laterality: bilateral Lung location: unspecified part of lung Qualified Code(s): J18.9 - Pneumonia, unspecified organism Plan: IV antibiotics, CXR, ABG. 10/17/19: CXR: Diffuse interstitial infiltrates with right worse than left. (3) Hyponatremia Status: Acute Plan: IVF with NS, Labs (4) Hypoxia Status: Acute Plan: Oxygen, ABGs. 10/16/19 ABG...PO2 49 on RA (5) CAD (coronary artery disease) Status: Chronic Qualifiers: Coronary Disease-Associated Artery/Lesion type: [place] artery [place] vs. 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 Home meds.
[2019-10-19] MEDS: PULMICORT NEB TX 0.5 MG NEB SCH ×3 (10:05→20:20)
[2019-10-19] MEDS: HumuLIN R SUBCUT PRN ×2 (12:45→18:18)
[2019-10-19] MEDS: PLAQUENIL PO SCH ×2 (12:45→21:11)
[2019-10-19] MEDS: SNACK - Diabetic Appropriate PO SCH (21:10)
[2019-10-19] MEDS: LOVENOX INJ 40 MG SYR SC SCH (21:12)
[2019-10-20] MEDS: XOPENEX 1.25 MG/3 ML NEBULE NEB SCH ×2 (00:35→06:06)
[2019-10-20] MEDS: BENADRYL CAP/TAB 25 MG PO SCH ×2 (01:42→09:33)
[2019-10-20] MEDS: SOLU-Medrol 125 MG VIAL IVP SCH ×2 (03:24→09:33)
[2019-10-20] MEDS: ZOSYN VIAL 4.5 GRAMS 4.5 G in NS 100 ML IV + SPIKE MINIBAG* 100 ML IV SCH ×2 (05:16→14:22)
[2019-10-20 05:41] LABS: BASOPHILS % (AUTO) 0 % (0.2-1.0); HEMATOCRIT 34.1 % (42.0-54.0); HEMOGLOBIN 11.5 g/dL (13.5-18.0); LYMPHOCYTES # (AUTO) 0.5 X10^3/uL (1.3-2.9); MEAN CORPUSCULAR HEMOGLOBIN 30.3 pg (27.0-34.0); MEAN CORPUSCULAR HGB CONC 33.9 g/dL (33.0-35.0); MEAN CORPUSCULAR VOLUME 89.3 fL (80.0-100.0); MEAN PLATELET VOLUME 8.5 fL (7.4-11.0); MONOCYTES # (AUTO) 0.2 x10^3/uL (0.3-0.8); MONOCYTES % (AUTO) 3.8 % (0.0-13.0); NEUTROPHILS # (AUTO) 3.5 x10^3/uL (2.2-4.8); NEUTROPHILS % (AUTO) 85.2 % (42.0-75.0); PLATELET COUNT 194 X10^3/uL (150.0-450.0); RED BLOOD COUNT 3.81 X10^6/uL (4.7-6.0); RED CELL DISTRIBUTION WIDTH 12.5 % (11.6-16.5); WHITE BLOOD COUNT 4.2 X10^3/uL (3.6-10.0)
[2019-10-20 05:48] LABS: ALANINE AMINOTRANSFERASE 25 Units/L (12-78); ALBUMIN 2.3 g/dL (3.4-5.0); ALKALINE PHOSPHATASE 36 Units/L (46-116); ASPARTATE AMINO TRANSFERASE 18 Units/L (15-37); BLOOD UREA NITROGEN 21 mg/dL (7-18); CALCIUM 8.6 mg/dL (8.5-10.1); CARBON DIOXIDE 32.9 mmol/L (21-32); CHLORIDE 96 mmol/L (98-107); COR NA(FOR HYPERGLY) 139 mmol/L (136-145); CREATININE 1.17 mg/dL (0.70-1.30); MAGNESIUM 1.7 mg/dL (1.7-2.9); SODIUM 133 mmol/L (136-145); TOTAL PROTEIN 6.1 g/dL (6.4-8.2); eGFR NON BLACK RACES > 60 (>60)
[2019-10-20] MEDS: HumuLIN R SUBCUT PRN ×2 (06:59→12:13)
--- NOTE | 2019-10-20 08:03 | RAD ---
HISTORYSOB, COVID +STUDYCHEST, 1 VIEWCOMPARISONChest film October 19, 2019.FINDINGSThe trachea is midline. The cardiac silhouette is unremarkable. There are sternotomy wires and see and surgical clips from CABG surgery. Stable peripheral mild bibasilar infiltrates are observed. No new infiltrates or effusions or pneumothorax are observed.. The bony thorax is unremarkable other than multiple old healed left posterior rib fractures.IMPRESSIONStable mild bibasilar interstitial infiltrates without change from yesterday's exam.Postsurgical changes from CABG surgery.Electronically signed by: HOANG POP (Oct 20, 2019 08:02:05)
[2019-10-20] MEDS ORDERED: GLUCOPHAGE ONE (09:01)
[2019-10-20] MEDS: ALDACTONE TAB 25 MG PO SCH (09:23)
[2019-10-20] MEDS: COREG TAB 6.25 MG PO SCH (09:23)
[2019-10-20] MEDS: LASIX PO SCH (09:27)
[2019-10-20] MEDS: MAG-OX TAB PO SCH (09:28)
[2019-10-20] MEDS: PROTONIX TAB 40 MG PO SCH (09:28)
[2019-10-20] MEDS: PEPCID TAB 20 MG PO SCH (09:29)
[2019-10-20] MEDS: GLUCOPHAGE PO SCH (09:29)
[2019-10-20] MEDS: PLAVIX PO SCH (09:29)
[2019-10-20] MEDS: ZESTRIL TAB 5 MG PO SCH (09:32)
[2019-10-20] MEDS: ZITHROMAX INJ 500 MG VIAL 500 MG in NS 250 ML IV 250 ML IV SCH (09:32)
[2019-10-20] MEDS: VITAMIN C PO SCH (09:32)
[2019-10-20] MEDS: ZINC SULFATE PO SCH (09:33)
[2019-10-20] MEDS: PLAQUENIL PO SCH ×2 (09:33→10:46)
[2019-10-20] MEDS: ROBITUSSIN DM PO SCH ×2 (09:33→13:55)
[2019-10-20 09:56] LABS: ABG BASE EXCESS 7.5 mmol/L (-2.0-2.0)
[2019-10-20 09:57] LABS: ABG HCO3 31.1 mmol/L (22-26)
[2019-10-20] MEDS: PULMICORT NEB TX 0.5 MG NEB SCH (10:55)
[2019-10-20 12:46] VITALS: BP 155/73
[2019-10-20] MEDS: NS 1/2 1000 ML IV 1,000 ML IV SCH (14:22)
== END 2019-10-20 14:54 | disposition home or self-care (01) | DRG 177 ==
LOC: OBS 11:44 → ICU 13:23
PROVIDERS: ADMIT Internal Medicine; ATTEND Internal Medicine
DX: J12.89 Other viral pneumonia; E87.1 Hypo-osmolality and hyponatremia; I25.10 Atherosclerotic heart disease of native coronary artery without angina pectoris; I10 Essential (primary) hypertension; J44.9 Chronic obstructive pulmonary disease, unspecified; U07.1 COVID-19; E11.65 Type 2 diabetes mellitus with hyperglycemia; R06.02 Shortness of breath; R50.9 Fever, unspecified
CPT/HCPCS: 36415; 36600; 71010; 71045; 71275; 80053; 82728; 82803; 82947; 83735; 83880; 84132; 84484; 85025; 85378; 86140; 86850; 86900; 86901; 87040; 87635; 94640; 94669; A4222; J0456; J0696; J1650; J1815; J2543; J2930; J3490; J7050; J7626

== ENCOUNTER 2022-05-29 11:42 | Observation (INO) ==
[2022-05-29] MEDS: NovoLIN R (or HumuLIN R) SC PRN ×2 (14:20→17:49)
[2022-05-29] MEDS ORDERED: DILAUDID INJ IVP PRN (14:32)
[2022-05-29] MEDS: NS 1,000 ML IV 1,000 ML IV SCH (14:52)
[2022-05-29 15:03] LABS: BASOPHILS % (AUTO) 0.4 % (0.2-1.0); EOSINOPHILS # (AUTO) 0.2 x10^3/uL (0.0-0.2); LYMPHOCYTES # (AUTO) 2.1 X10^3/uL (1.3-2.9)
[2022-05-29 15:06] LABS: EOSINOPHILS % (AUTO) 2.4 % (0.9-2.9); HEMATOCRIT 38.5 % (42.0-54.0); HEMOGLOBIN 12.9 g/dL (13.5-18.0); LYMPHOCYTES % (AUTO) 31.4 % (21.0-51.0); MEAN CORPUSCULAR HEMOGLOBIN 30.2 pg (27.0-34.0); MEAN CORPUSCULAR HGB CONC 33.6 g/dL (33.0-35.0); MEAN CORPUSCULAR VOLUME 89.9 fL (80.0-100.0); MEAN PLATELET VOLUME 8.8 fL (7.4-11.0); MONOCYTES # (AUTO) 0.3 x10^3/uL (0.3-0.8); MONOCYTES % (AUTO) 5.2 % (0.0-13.0); NEUTROPHILS # (AUTO) 4.1 x10^3/uL (2.2-4.8); NEUTROPHILS % (AUTO) 60.6 % (42.0-75.0); RED BLOOD COUNT 4.28 X10^6/uL (4.7-6.0); RED CELL DISTRIBUTION WIDTH 13.2 % (11.6-16.5); WHITE BLOOD COUNT 6.8 X10^3/uL (3.6-10.0)
[2022-05-29 15:08] LABS: ERYTHROCYTE SEDIMENTATION RATE 32 MM/HOUR (0-15)
[2022-05-29 15:35] LABS: ALANINE AMINOTRANSFERASE 39 Units/L (12-78); ALBUMIN 3.4 g/dL (3.4-5.0); ALKALINE PHOSPHATASE 54 Units/L (46-116); ASPARTATE AMINO TRANSFERASE 24 Units/L (15-37); BLOOD UREA NITROGEN 16 mg/dL (7-18); CALCIUM 9.2 mg/dL (8.5-10.1); CARBON DIOXIDE 28.8 mmol/L (21-32); CHLORIDE 96 mmol/L (98-107); CREATININE 1.49 mg/dL (0.70-1.30); FREE T4 (FREE THYROXINE) 0.89 ng/dL (0.76-1.46); SODIUM 131 mmol/L (136-145); TOTAL PROTEIN 7.2 g/dL (6.4-8.2); TSH (3RD GENERATION) 2.526 uIU/mL (0.358-3.74); eGFR NON BLACK RACES 50 (>60)
[2022-05-29 15:36] LABS: COR NA(FOR HYPERGLY) 142 mmol/L (136-145)
[2022-05-29] MEDS: NORCO 5/325 MG TAB PO PRN (15:40)
[2022-05-29 15:52] LABS: IRON 62 ug/dL (50-175); TOTAL IRON BINDING CAPACITY 324 ug/dL (250-450); TOTAL PSA 0.37 ng/mL (0.13-4.0)
[2022-05-29 16:03] LABS: BILIRUBIN,URINE NEGATIVE (NEGATIVE); BLOOD/HEMOGLOBIN,URINE NEGATIVE (NEGATIVE); GLUCOSE, URINE 4+ (NEGATIVE); KETONES,URINE NEGATIVE (NEGATIVE); LEUKOCYTE ESTERASE ,URINE NEGATIVE (NEGATIVE); NITRITES,URINE NEGATIVE (NEGATIVE); PROTEIN,URINE 1+ (NEGATIVE); UROBILINOGEN,URINE NORMAL (NORMAL)
[2022-05-29 16:11] LABS: APPEARANCE,URINE CLEAR (CLEAR); BACTERIA,URINE TRACE /HPF (NEGATIVE); COLOR,URINE STRAW (YELLOW); RBC,URINE NONE SEEN /HPF (0-3); SQUAMOUS EPITHELIAL CELL,UR RARE /HPF (NEGATIVE)
--- NOTE | 2022-05-29 16:36 | CT ---
HISTORYLOW BACK PAIN.STUDYLUMBAR SPINE W/O CONCOMPARISONNoneTECHNIQUEMultiple CT axial images of the lumbar spine were obtained without IV contrast. Coronal and sagittal images were reconstructed. Dose reduction techniques included Automated Exposure Control (AEC) and adjustment of mA and kV.FINDINGSThere is no significant scoliosis. The usual lordosis is maintained. The heights of the vertebral bodies are normal. No spondylolisthesis. No spondylolysis. There is no fracture.The bony changes of degenerative disc disease are most prominent at L2-3. Facet osteoarthritis most prominent on the right side at L5-S1. Sacroiliac joints are unremarkable.Soft tissue degenerative changes are also noted. This is most severe at L4-5. A large central disc protrusion is present extending into the spinal canal. The resulting canal AP diameter is about 6-7 mm. Bilateral ligamentum flavum thickening is present.Much less prominent disc bulge is present at L3-4.No kidney stone or hydronephrosis. No abdominal aortic aneurysm.IMPRESSION1. Multilevel degenerative changes, most severe at L4-5Electronically signed by: Petros Beltre (May 29, 2022 16:35:52)
[2022-05-30] MEDS: NS 1,000 ML IV 1,000 ML IV SCH ×2 (04:00→18:11)
[2022-05-30 05:58] LABS: BASOPHILS % (AUTO) 0.5 % (0.2-1.0); EOSINOPHILS # (AUTO) 0.2 x10^3/uL (0.0-0.2); EOSINOPHILS % (AUTO) 3.7 % (0.9-2.9); HEMATOCRIT 35.8 % (42.0-54.0); HEMOGLOBIN 12.3 g/dL (13.5-18.0); LYMPHOCYTES % (AUTO) 41.3 % (21.0-51.0); MEAN CORPUSCULAR HEMOGLOBIN 30.3 pg (27.0-34.0); MEAN CORPUSCULAR HGB CONC 34.2 g/dL (33.0-35.0); MEAN CORPUSCULAR VOLUME 88.6 fL (80.0-100.0); MEAN PLATELET VOLUME 8.4 fL (7.4-11.0); MONOCYTES # (AUTO) 0.3 x10^3/uL (0.3-0.8); MONOCYTES % (AUTO) 7.1 % (0.0-13.0); NEUTROPHILS # (AUTO) 2.3 x10^3/uL (2.2-4.8); NEUTROPHILS % (AUTO) 47.4 % (42.0-75.0); RED BLOOD COUNT 4.05 X10^6/uL (4.7-6.0); RED CELL DISTRIBUTION WIDTH 13.2 % (11.6-16.5); WHITE BLOOD COUNT 4.9 X10^3/uL (3.6-10.0)
[2022-05-30 06:16] LABS: ALANINE AMINOTRANSFERASE 32 Units/L (12-78); ALBUMIN 2.9 g/dL (3.4-5.0); ALKALINE PHOSPHATASE 43 Units/L (46-116); ASPARTATE AMINO TRANSFERASE 20 Units/L (15-37); BLOOD UREA NITROGEN 17 mg/dL (7-18); CALCIUM 9.1 mg/dL (8.5-10.1); CARBON DIOXIDE 26.8 mmol/L (21-32); CHLORIDE 102 mmol/L (98-107); COR NA(FOR HYPERGLY) 142 mmol/L (136-145); CREATININE 0.97 mg/dL (0.70-1.30); SODIUM 138 mmol/L (136-145); TOTAL PROTEIN 6.4 g/dL (6.4-8.2); eGFR NON BLACK RACES > 60 (>60)
[2022-05-30] MEDS: NovoLIN R (or HumuLIN R) SC PRN ×4 (06:18→22:43)
--- NOTE | 2022-05-30 06:26 | RAD ---
HISTORYIntractable back painSTUDYChest PA and lateralCOMPARISONNone availableFINDINGSThere is a pacemaker present on the left. Patient is status post median sternotomy and CABG. Heart size is upper limits normal. Aorta is calcified. Maribel are normal. Lung mancini are clear. No pleural effusion or pneumothorax is identified. Bony thorax is unremarkable.IMPRESSIONNo significant abnormality identifiedElectronically signed by: DONN MCELROY (May 30, 2022 06:25:11)
[2022-05-30] MEDS: LOVENOX INJ 40 MG SYR SC SCH ×2 (09:31→09:37)
[2022-05-30] MEDS: NORCO 5/325 MG TAB PO PRN ×2 (09:36→19:15)
--- NOTE | 2022-05-30 12:49 | DR.H&P ---
H&P - History & Physical for Day of: H&P Date: 05/29/22 - Chief Complaint Chief Complaint: Intractable back and pelvic pain, nausea, diarrhea - History of Present Illness History of Present Illness: The patient is a 72-year-old white male who presents to the [facility] office with complaints of intractable low back pain. States that it started Sunday morning. He states that he cannot roll over in bed without assistance. gives history of having pelvic issues. States he did go to the chiropractor this morning for adjustment in the chiropractor felt like he was able to get the pelvis back in place. patient states that the pain is uncontr olled. Also gives complain of having intermittent fever with diarrhea almost weekly. states that he is having increased acid reflux and is back on his stomach medication. Patient states he is not able to get his blood sugar down. States that it is pain in the 300 - 400s. states that he forgets to take the Ozempic. States that he is having blisters form on his fingers. States that they'll turn into an ulceration. Does state he has a blood blister to the tip of his left index finger. Patient has history of CAD with stent placement. Patient denies having any chest pain, palpitations or shortness of breath. - Past Medical History Past Medical History: COPD, Coronary Artery Disease, Hypertension, Dyslipidemia, Diabetes, CHF - Past Surgical History Surgical History: CABG/Valve Surgery, Ortho Surgery - Family History Family Medical History: Diabetes Mellitus, Cancer, [place], Hypertension - Social History Does patient currently use any type of tobacco product: Yes Have you used tobacco products in the last 12 months: Yes Type of Tobacco Use: Smokeless How many years tobacco product used: 1 Does any household member use tobacco: No Alcohol Use: None Drug Use: None Risks, benefits, and alternatives of opioids discussed: No Prescription drug monitoring program results: PDMP reviewed and no concerns identified - Medications Home Medications: No Known Drug Allergies Allergy (Verified 10/13/19 18:06) CONTINUE taking the following medications aspirin 81 mg capsule 81 mg PO QDAY 05/30/22 [History] coenzyme Q10 100 mg capsule (CoQ-10) 100 mg PO ONCE PM 05/30/22 [History] fenofibrate 160 mg tablet 1 tab PO QDAY 05/30/22 [History] furosemide 40 mg tablet 1 tab PO BID 05/30/22 [History] losartan 25 mg tablet 0.5 tab PO QDAY 05/30/22 [History] rosuvastatin 40 mg tablet 1 tab PO QDAY 05/30/22 [History] semaglutide 0.25 mg or 0.5 mg (2 mg/3 mL) subcutaneous pen injector (Ozempic) 0.25 mg subcut WEEKLY 05/30/22 [History] spironolactone 50 mg tablet 1 tab PO QDAY 05/30/22 [History] - Review of Systems Constitutional: Malaise Eyes: No Symptoms Reported ENT: No Symptoms Reported Respiratory: No Symptoms Reported Cardiovascular: No Symptoms Reported Gastrointestinal: See HPI, Nausea, Abdominal Pain, Diarrhea Genitourinary: No Symptoms Reported Musculoskeletal: Back Pain Skin: Wound (Ulcers to fingers. ) Neurological: No Symptoms Reported - Physical Exam Vital Signs: Temperature 97.6 F Pulse Rate [Left Radial] 70 Respiratory Rate 18 Blood Pressure [Right Arm] 142/70 Blood Pressure [Left Arm] 133/64 Blood Pressure 155/73 O2 Sat by Pulse Oximetry 100 Oriented: Normal Eyes: Normal Ear: Normal Nose: Normal Throat: Normal Respiratory: Clear Throughout Cardiovascular: Normal : Normal Auscultation: Bowel Sounds: Normal Palpation: Normal Tenderness: Normal Skin: Wound (Multiple ulcer/indurations to figers on left hand. Blood blister left index finger pad.), Other (Pale) Musculoskeletal: Back:Lumbar, Pelvis, Tender, Motor Deficit Psychiatric: Normal Mood Description: Anxious Affect: Flat Speech Pattern: Clear - Assessment/Plan (1) Low back pain Qualifiers: Chronicity: acute Back pain laterality: bilateral Status: Acute Plan: CT lumbar, Pain mgmt (2) Pelvic pain in male Status: Acute Plan: CT Lumbar, Pain mgmt. 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 transplanted heart: [place] heart Associated angina: without angina Qualified Code(s): I25.10 - Atherosclerotic heart disease of [place] coronary artery without angina pectoris Status: Chronic Plan: Home medications (7) Chronic systolic (congestive) heart failure Status: Acute Plan: Home meds. Limit fluids - Review H&P Reviewed: Yes Patient was examined?: Yes - Allergies Allergies/Adverse Reactions: Allergies Allergy/AdvReac Type Severity Reaction Status Date / Time No Known Drug Allergies Allergy Verified 10/13/19 18:06
[2022-05-30] MEDS ORDERED: EMPAGLIFLOZIN LINAGLIPTIN PO SCH (13:00)
[2022-05-30] MEDS ORDERED: COENZYME Q10 100 MG PO SCH (13:00)
[2022-05-30 13:35] LABS: AMYLASE 87 Units/L (25-115)
[2022-05-30 13:36] LABS: LIPASE 1426 Units/L (73-393)
[2022-05-30] MEDS ORDERED: GLUCOPHAGE ONE ×2 (15:01→20:43)
[2022-05-30] MEDS: PLAVIX PO SCH (15:04)
[2022-05-30] MEDS: ALDACTONE TAB 25 MG PO SCH (15:04)
[2022-05-30] MEDS: GLUCOPHAGE PO SCH ×2 (15:04→21:05)
[2022-05-30] MEDS: TRICOR TAB 160 MG PO SCH (15:05)
[2022-05-30] MEDS: COZAAR PO SCH (15:05)
--- NOTE | 2022-05-30 16:01 | CT ---
HISTORYVOMITING, DIARRHEA history of hypertension and diabetes mellitus.STUDYABDOMEN/PELVIS WITH CONCOMPARISONNoneTECHNIQUEMultiple CT axial images of the abdomen and pelvis were obtained with IV contrast. Coronal and sagittal images were reconstructed. Dose reduction techniques included Automated Exposure Control (AEC) and adjustment of mA and kV.FINDINGSThe lung bases are clear. Heart size is normal.The liver is normal in size and configuration. The gallbladder has no inflammation around it. The spleen is normal in size and shape.The adrenal glands are normal. The pancreas is normal.Small stone left kidney is in the lower pole measuring about 3 mm. Renal enhancement is symmetric with no solid mass. There is no hydronephrosis or significant perirenal edema. The ureters are not dilated. The bladder is normally distended. It has no wall thickening or perivesical edema.The bowel is not dilated. There is no wall thickening in the bowel or edema around the bowel. The appendix is normal in size with no inflammation around it. No evidence of appendicitis.Very mild degenerative changes are seen in the spine. The postsurgical changes are noted in the anterior abdominal wall. No evidence for abdominal wall hernia. There are small inguinal hernias containing fat.IMPRESSION1. Nonobstructing left renal calculus2. No acute findingElectronically signed by: Petros Beltre (May 30, 2022 16:00:36)
[2022-05-30] MEDS ORDERED: TOUJEO SOLOSTAR PEN SC SCH (21:00)
[2022-05-30] MEDS: RESTORIL CAP 15 MG PO PRN (21:04)
[2022-05-30] MEDS: COREG TAB 6.25 MG PO SCH (21:05)
[2022-05-30] MEDS: LASIX PO SCH (21:06)
[2022-05-30] MEDS: SNACK - Diabetic Appropriate PO SCH (21:07)
[2022-05-31] MEDS: NovoLIN R (or HumuLIN R) SC PRN ×3 (06:30→17:15)
[2022-05-31 06:56] LABS: BASOPHILS % (AUTO) 0.5 % (0.2-1.0); EOSINOPHILS # (AUTO) 0.2 x10^3/uL (0.0-0.2); EOSINOPHILS % (AUTO) 2.3 % (0.9-2.9); HEMATOCRIT 37.5 % (42.0-54.0); HEMOGLOBIN 12.7 g/dL (13.5-18.0); LYMPHOCYTES # (AUTO) 2.1 X10^3/uL (1.3-2.9); LYMPHOCYTES % (AUTO) 30.4 % (21.0-51.0); MEAN CORPUSCULAR HEMOGLOBIN 30.3 pg (27.0-34.0); MEAN CORPUSCULAR VOLUME 89.1 fL (80.0-100.0); MEAN PLATELET VOLUME 8.4 fL (7.4-11.0); MONOCYTES # (AUTO) 0.5 x10^3/uL (0.3-0.8); MONOCYTES % (AUTO) 7.2 % (0.0-13.0); NEUTROPHILS % (AUTO) 59.6 % (42.0-75.0); RED BLOOD COUNT 4.21 X10^6/uL (4.7-6.0); RED CELL DISTRIBUTION WIDTH 13.2 % (11.6-16.5); WHITE BLOOD COUNT 6.8 X10^3/uL (3.6-10.0)
[2022-05-31 07:17] LABS: ALANINE AMINOTRANSFERASE 36 Units/L (12-78); ALBUMIN 3.1 g/dL (3.4-5.0); ALKALINE PHOSPHATASE 50 Units/L (46-116); ASPARTATE AMINO TRANSFERASE 27 Units/L (15-37); BLOOD UREA NITROGEN 16 mg/dL (7-18); CALCIUM 8.9 mg/dL (8.5-10.1); CARBON DIOXIDE 25.5 mmol/L (21-32); CHLORIDE 100 mmol/L (98-107); COR CA(FOR HYPOALB) 9.6 mg/dL (8.5-10.1); COR NA(FOR HYPERGLY) 141 mmol/L (136-145); CREATININE 0.95 mg/dL (0.70-1.30); SODIUM 135 mmol/L (136-145); TOTAL PROTEIN 6.7 g/dL (6.4-8.2); eGFR NON BLACK RACES > 60 (>60)
[2022-05-31 08:37] LABS: AMYLASE 76 Units/L (25-115); LIPASE 629 Units/L (73-393)
[2022-05-31 08:57] LABS: URIC ACID 4.9 mg/dL (3.5-7.2)
[2022-05-31] MEDS ORDERED: GLUCOPHAGE ONE ×2 (09:09→20:17)
[2022-05-31 09:18] LABS: HEMOGLOBIN A1C 12.6 %
[2022-05-31] MEDS: LOVENOX INJ 40 MG SYR SC SCH (10:23)
[2022-05-31] MEDS: NS 1,000 ML IV 1,000 ML IV SCH (13:40)
[2022-05-31] MEDS: ALDACTONE TAB 25 MG PO SCH (13:41)
[2022-05-31] MEDS: CRESTOR TAB 10 MG PO SCH (13:41)
[2022-05-31] MEDS: PLAVIX PO SCH (13:42)
[2022-05-31] MEDS: ASPIRIN EC 81 MG PO SCH (13:42)
[2022-05-31] MEDS: COZAAR PO SCH (13:43)
[2022-05-31] MEDS: TRICOR TAB 160 MG PO SCH (13:45)
[2022-05-31] MEDS: COREG TAB 6.25 MG PO SCH ×2 (13:48→21:56)
[2022-05-31] MEDS: GLUCOPHAGE PO SCH ×2 (13:49→21:55)
[2022-05-31] MEDS: LASIX PO SCH ×2 (13:49→21:56)
--- NOTE | 2022-05-31 14:28 | US ---
HISTORYRight upper quadrant painSTUDYGALL FVLMOTACMRDNULHEE10/28/2023 CTTECHNIQUEMultiple dailey scale and color flow Doppler images of the right upper quadrant were obtained.FINDINGSThe liver is normal in echotexture and size . No focal intraparenchymal mass or intrahepatic biliary ductal dilatation can be observed. The gallbladder fails to demonstrate evidence for cholelithiasis or layering sludge . The common bile duct is unremarkable measuring 2-3 millimeter. No pericholecystic fluid or gallbladder wall thickening can be observed. Gallbladder wall thickness 2 millimeter.The right kidney appears normal in size without focal parenchymal mass or nephrolithiasis. The right kidney measurers 10.5 centimeter in length. No hydronephrosis or perirenal fluid can be observed. The pancreatic head and body are unremarkable. The pancreatic tail is largely obscured by overlying bowel gas. Main portal vein, main hepatic vein appropriate directional flow. Patent artery patent.IMPRESSIONUnremarkable examination of the right upper quadrant. No evidence for cholelithiasis or cholecystitis with normal caliber common bile ductElectronically signed by: Jigar Orozco (May 31, 2022 14:27:29)
[2022-05-31] MEDS: SNACK - Diabetic Appropriate PO SCH (20:30)
[2022-05-31] MEDS ORDERED: TOUJEO SOLOSTAR PEN SC SCH (21:00)
[2022-05-31] MEDS: RESTORIL CAP 15 MG PO PRN (23:56)
[2022-05-31] MEDS: NORCO 5/325 MG TAB PO PRN (23:58)
[2022-06-01] MEDS: NS 1,000 ML IV 1,000 ML IV SCH ×2 (00:01→18:26)
[2022-06-01 05:37] LABS: BASOPHILS % (AUTO) 0.5 % (0.2-1.0); EOSINOPHILS # (AUTO) 0.2 x10^3/uL (0.0-0.2); EOSINOPHILS % (AUTO) 3.5 % (0.9-2.9); HEMATOCRIT 38.2 % (42.0-54.0); LYMPHOCYTES # (AUTO) 2.6 X10^3/uL (1.3-2.9); LYMPHOCYTES % (AUTO) 42.8 % (21.0-51.0); MEAN CORPUSCULAR HEMOGLOBIN 30.2 pg (27.0-34.0); MEAN CORPUSCULAR VOLUME 88.9 fL (80.0-100.0); MEAN PLATELET VOLUME 8.6 fL (7.4-11.0); MONOCYTES # (AUTO) 0.4 x10^3/uL (0.3-0.8); MONOCYTES % (AUTO) 7.4 % (0.0-13.0); NEUTROPHILS # (AUTO) 2.7 x10^3/uL (2.2-4.8); NEUTROPHILS % (AUTO) 45.8 % (42.0-75.0); RED BLOOD COUNT 4.29 X10^6/uL (4.7-6.0); RED CELL DISTRIBUTION WIDTH 13.2 % (11.6-16.5)
[2022-06-01 05:53] LABS: ALANINE AMINOTRANSFERASE 30 Units/L (12-78); ALBUMIN 3.1 g/dL (3.4-5.0); ALKALINE PHOSPHATASE 43 Units/L (46-116); ASPARTATE AMINO TRANSFERASE 19 Units/L (15-37); BLOOD UREA NITROGEN 15 mg/dL (7-18); CARBON DIOXIDE 28.9 mmol/L (21-32); CHLORIDE 101 mmol/L (98-107); COR CA(FOR HYPOALB) 9.7 mg/dL (8.5-10.1); COR NA(FOR HYPERGLY) 141 mmol/L (136-145); CREATININE 0.97 mg/dL (0.70-1.30); SODIUM 136 mmol/L (136-145); TOTAL PROTEIN 6.9 g/dL (6.4-8.2); eGFR NON BLACK RACES > 60 (>60)
[2022-06-01] MEDS ORDERED: GLUCOPHAGE ONE ×2 (10:23→21:51)
[2022-06-01] MEDS: ALDACTONE TAB 25 MG PO SCH (11:05)
[2022-06-01] MEDS: TRICOR TAB 160 MG PO SCH (11:06)
[2022-06-01] MEDS: ASPIRIN EC 81 MG PO SCH (11:06)
[2022-06-01] MEDS: GLUCOPHAGE PO SCH ×2 (11:07→22:06)
[2022-06-01] MEDS: PLAVIX PO SCH (11:07)
[2022-06-01] MEDS: LOVENOX INJ 40 MG SYR SC SCH (11:08)
[2022-06-01] MEDS: LASIX PO SCH ×2 (11:08→22:07)
[2022-06-01] MEDS: COZAAR PO SCH (11:09)
[2022-06-01] MEDS: CRESTOR TAB 10 MG PO SCH (11:09)
[2022-06-01] MEDS: COREG TAB 6.25 MG PO SCH ×2 (11:09→22:07)
[2022-06-01] MEDS: NORCO 5/325 MG TAB PO PRN ×2 (11:22→21:46)
[2022-06-01] MEDS: NovoLIN R (or HumuLIN R) SC PRN ×3 (12:36→22:02)
[2022-06-01] MEDS ORDERED: TOUJEO SOLOSTAR PEN SC SCH (21:00)
[2022-06-01] MEDS: RESTORIL CAP 15 MG PO PRN (22:05)
[2022-06-01] MEDS: SNACK - Diabetic Appropriate PO SCH (22:14)
[2022-06-02] MEDS: NS 1,000 ML IV 1,000 ML IV SCH (05:20)
[2022-06-02] MEDS: NovoLIN R (or HumuLIN R) SC PRN ×2 (06:18→12:35)
[2022-06-02 06:42] LABS: BASOPHILS % (AUTO) 0.4 % (0.2-1.0); EOSINOPHILS # (AUTO) 0.2 x10^3/uL (0.0-0.2); EOSINOPHILS % (AUTO) 3.7 % (0.9-2.9); HEMATOCRIT 36.4 % (42.0-54.0); HEMOGLOBIN 12.5 g/dL (13.5-18.0); LYMPHOCYTES # (AUTO) 2.9 X10^3/uL (1.3-2.9); LYMPHOCYTES % (AUTO) 49.3 % (21.0-51.0); MEAN CORPUSCULAR HEMOGLOBIN 30.5 pg (27.0-34.0); MEAN CORPUSCULAR HGB CONC 34.2 g/dL (33.0-35.0); MEAN CORPUSCULAR VOLUME 89.2 fL (80.0-100.0); MEAN PLATELET VOLUME 8.8 fL (7.4-11.0); MONOCYTES # (AUTO) 0.5 x10^3/uL (0.3-0.8); MONOCYTES % (AUTO) 7.8 % (0.0-13.0); NEUTROPHILS # (AUTO) 2.3 x10^3/uL (2.2-4.8); NEUTROPHILS % (AUTO) 38.8 % (42.0-75.0); RED BLOOD COUNT 4.08 X10^6/uL (4.7-6.0); RED CELL DISTRIBUTION WIDTH 13.5 % (11.6-16.5); WHITE BLOOD COUNT 5.8 X10^3/uL (3.6-10.0)
[2022-06-02 06:52] LABS: ALANINE AMINOTRANSFERASE 24 Units/L (12-78); ALBUMIN 3.1 g/dL (3.4-5.0); ALKALINE PHOSPHATASE 42 Units/L (46-116); ASPARTATE AMINO TRANSFERASE 17 Units/L (15-37); BLOOD UREA NITROGEN 21 mg/dL (7-18); CALCIUM 9.1 mg/dL (8.5-10.1); CARBON DIOXIDE 26.8 mmol/L (21-32); CHLORIDE 100 mmol/L (98-107); COR CA(FOR HYPOALB) 9.8 mg/dL (8.5-10.1); COR NA(FOR HYPERGLY) 139 mmol/L (136-145); CREATININE 1.12 mg/dL (0.70-1.30); SODIUM 136 mmol/L (136-145); TOTAL PROTEIN 6.7 g/dL (6.4-8.2); eGFR NON BLACK RACES > 60 (>60)
[2022-06-02 07:07] LABS: AMYLASE 86 Units/L (25-115); LIPASE 758 Units/L (73-393)
[2022-06-02] MEDS ORDERED: GLUCOPHAGE ONE (10:39)
[2022-06-02] MEDS: CRESTOR TAB 10 MG PO SCH (10:48)
[2022-06-02] MEDS: LASIX PO SCH (10:49)
[2022-06-02] MEDS: PLAVIX PO SCH (10:50)
[2022-06-02] MEDS: COREG TAB 6.25 MG PO SCH (10:50)
[2022-06-02] MEDS: ASPIRIN EC 81 MG PO SCH (10:51)
[2022-06-02] MEDS: ALDACTONE TAB 25 MG PO SCH (10:52)
[2022-06-02] MEDS: GLUCOPHAGE PO SCH (10:53)
[2022-06-02] MEDS: TRICOR TAB 160 MG PO SCH (10:55)
[2022-06-02] MEDS: COZAAR PO SCH (10:55)
[2022-06-02] MEDS: LOVENOX INJ 40 MG SYR SC SCH (10:55)
--- NOTE | 2022-06-02 11:02 | NM ---
HISTORY: Abdominal pain. Nausea, vomiting, and diarrhea.Study: Nuclear medicine HIDA scan with ejection fractionComparison: None available.Technique: Multiple scintigraphic images of the abdomen were obtained the intravenous administration of 5.7 mCi of technetium labeled [Choletec].Following distention of the gallbladder with radiotracer a bottle of Ensure was given.An estimated gallbladder ejection fraction was calculated based on this physiologic response.Findings:Homogeneous uptake of radiotracer is seen throughout the liver. The intrabiliary ductal system is observed normally.The common hepatic and common bile duct grossly appear unremarkable with normal biliary-bowel transit. The gallbladder is observed to fill normally.After the administration of Ensure, a normal gallbladder ejection fraction of 46% (normal > 35%) is observed.IMPRESSION:1. Normal hepatobiliary imaging scan.2. Normal gallbladder ejection fraction.Electronically signed by: SOHAN MARTINES III (Jun 02, 2022 11:01:16)
[2022-06-02 12:38] VITALS: BP 148/72
[2022-06-03 06:45] LABS: ANTI-NUCLEAR ANTIBODY TEST None Detected (None Detected)
== END 2022-06-02 13:20 | disposition home or self-care (01) ==
LOC: MED/SURG
PROVIDERS: ADMIT Internal Medicine; ATTEND Internal Medicine
DX: K29.00 Acute gastritis without bleeding; M54.59 Other low back pain; M19.90 Unspecified osteoarthritis, unspecified site; R11.2 Nausea with vomiting, unspecified; I10 Essential (primary) hypertension; R10.11 Right upper quadrant pain; R10.13 Epigastric pain; E11.65 Type 2 diabetes mellitus with hyperglycemia; R10.2 Pelvic and perineal pain; I25.10 Atherosclerotic heart disease of native coronary artery without angina pectoris; M51.36 Other intervertebral disc degeneration, lumbar region; I50.23 Acute on chronic systolic (congestive) heart failure; J44.9 Chronic obstructive pulmonary disease, unspecified; K85.80 Other acute pancreatitis without necrosis or infection; E78.2 Mixed hyperlipidemia; R70.0 Elevated erythrocyte sedimentation rate; R19.7 Diarrhea, unspecified